=== PATIENT | female | born 1990 | race Caucasian/White ===

== ENCOUNTER → 2017-11-02 16:52 | Outpatient (CLI) | payer OTHER, SELFPAY ==
[2017-11-02 17:46] LABS: Absolute Lymphocyte Count 1.88 X10^3/ul (0.83-4.51); Absolute Neutrophil Count 5.2 X10^3/uL (2.0-7.7); Basophil# 0.02 X10^3/uL; Basophil% 0.3 % (0-1); Eosinophil# 0.06 X10^3/uL; Eosinophils% 0.8 % (0-5); Hemoglobin 12.4 g/dl (12.0-15.0); Lymphocyte # 1.88 X10^3/ul (4.0); Mean Corp Hgb Conc 34.4 g/gl (32-36); Mean Corpuscular Hgb 30.5 pg (27.0-32.0); Mean Corpuscular Volume 88.7 fL (81-99); Mean Platelet Vol. 9.1 fl (6.2-12.0); Neutrophil # 5.15 X10^3/uL (2.7-7.7); Neutrophil % 65.8 % (47-70); Platelet Count 310 K/mm3 (150-450); RBC Distribution Width CV 12.1 % (11.6-14.6); RBC Distribution Width SD 38.2 fl (35.1-43.9); Red Blood Count 4.06 M/mm3 (4.2-5.4); White Blood Count 7.8 K/mm3 (4.4-11.0)
[2017-11-02 17:50] LABS: POSITIVE COUNT NO; POSITIVE DIFFERENTIAL NO; POSITIVE MORPHOLOGY NO
[2017-11-02 19:55] LABS: HIV - WCH Non-Reactive (Nonreactive); Rubella IgG 66.4 IU/mL
[2017-11-02 21:23] LABS: Chlamydia Trachomatis by PCR Negative (Negative); Neisserai gonorrhoeae by PCR Negative (Negative); Probe Check PASS; Sample Adequacy Control PASS; Specimen Processing Control PASS
[2017-11-05 11:09] LABS: HEPATITIS B SURFACE AG Negative (Negative)
[2017-11-07 13:47] LABS: HPV Reflexed? NOT INDICATED
[2017-11-09 05:01] LABS: Rapid Plasmin Reagin (RPR) NONREACTIVE (NONREACTIVE)
== END ==
PROVIDERS: Visit Provider Obstetrics & Gynecology
DX: Z12.4 Encounter for screening for malignant neoplasm of cervix (principal); Z34.90 Encounter for supervision of normal pregnancy, unspecified, unspecified trimester
CPT/HCPCS: 36415; 85025; 86592; 86703; 86762; 86850; 86900; 87086; 87088; 87340; 87491; 87591; 88175; G0145

== ENCOUNTER → 2018-01-10 18:41 | Outpatient (CLI) | payer OTHER, SELFPAY ==
--- NOTE | 2018-01-10 18:32 | US_ITS ---
STUDY: SECOND AND THIRD TRIMESTER OBSTETRICAL ULTRASOUND REASON FOR EXAM: Female, 27 years old. Evaluate anatomy LMP: 08/30/2017 TECHNIQUE: Transabdominal PRIOR ULTRASOUND: None. FINDINGS: There is a single intrauterine fetus. The fetus is in a breech presentation. There is demonstrated cardiac activity with a heart rate of 130 bpm. The NOE was not calculated. The placenta is anterior in location and is not low lying. There are Grade 0 placental changes. The cervix measures 3.1 cm in length. The adnexal regions are not visualized. BIOMETRY: BPD: 4.13 cm: 18 weeks, 4 days HC: 16.07 cm: 19 weeks, 0 days AC: 13.40 cm: 19 weeks, 0 days FL: 2.8 cm: 18 weeks, 6 days CI: 75% FL/BPD: 70% FL/AC: 21% HC/AC: 1.20 age by current US: 18 weeks, 6 days. MICHAEL by current US: 06/07/2018. Estimated weight: 261 grams, +/- 38 grams, 37 %. Age by LMP: 19 weeks, 0 days. MICHAEL by LMP: 06/06/2018. ANATOMY: Gender: Female Cranium: Normal lateral ventricles. Normal choroid plexus. Normal cerebellum. Normal cisterna magna. Normal face, nose and lips. Chest: Normal 4-chamber heart. Abdomen/Pelvis: Normal diaphragm. Normal stomach. Normal abdominal wall. Normal cord insertion. Normal 3 vessel cord. Normal kidneys. Normal bladder. Spine: Normal cervical spine. Normal thoracic spine. Normal lumbar spine. Normal sacrum. Extremities: Normal bilateral upper extremities. Normal bilateral lower extremities. US/OB Anatomy Scan IMPRESSION: Single viable intrauterine of approximately 18 weeks 6 days gestational age by current ultrasonographic measurement. The fetus is in breech presentation. The heart rate is 130 bpm. There is an anterior not low lying placenta. No anatomical abnormalities were identified. Other findings as detailed above. Electronically Signed: Jarred Bertrand MD at 20:42 EDT , Service support ,
== END ==
LOC: US 18:42
PROVIDERS: Visit Provider Obstetrics & Gynecology
DX: Z34.90 Encounter for supervision of normal pregnancy, unspecified, unspecified trimester (principal)
CPT/HCPCS: 76805

== ENCOUNTER → 2018-03-15 10:05 | Outpatient (CLI) | payer OTHER, SELFPAY ==
[2018-03-15 11:19] LABS: Absolute Lymphocyte Count 1.55 X10^3/ul (0.83-4.51); Absolute Neutrophil Count 5.7 X10^3/uL (2.0-7.7); Basophil# 0.03 X10^3/uL; Basophil% 0.4 % (0-1); Eosinophil# 0.06 X10^3/uL; Eosinophils% 0.8 % (0-5); Hematocrit 34.9 % (37-47); Hemoglobin 11.7 g/dl (12.0-15.0); Lymphocyte # 1.55 X10^3/ul (4.0); Lymphocyte % 19.5 % (19-41); Mean Corp Hgb Conc 33.5 g/gl (32-36); Mean Corpuscular Hgb 30.6 pg (27.0-32.0); Mean Corpuscular Volume 91.4 fL (81-99); Mean Platelet Vol. 9.5 fl (6.2-12.0); Monocyte% 7.5 % (0-10); Neutrophil # 5.67 X10^3/uL (2.7-7.7); Neutrophil % 71.2 % (47-70); Platelet Count 271 K/mm3 (150-450); RBC Distribution Width CV 12.5 % (11.6-14.6); RBC Distribution Width SD 40.4 fl (35.1-43.9); Red Blood Count 3.82 M/mm3 (4.2-5.4)
[2018-03-15 11:20] LABS: POSITIVE COUNT NO; POSITIVE DIFFERENTIAL NO; POSITIVE MORPHOLOGY NO
[2018-03-15 11:33] LABS: Glucose Challenge Gest 1H 50g 106 mg/dL (70-140)
== END ==
PROVIDERS: Visit Provider Obstetrics & Gynecology
DX: Z34.90 Encounter for supervision of normal pregnancy, unspecified, unspecified trimester (principal)
CPT/HCPCS: 36415; 82950; 85025

== ENCOUNTER → 2018-04-29 10:51 | Outpatient (CLI) | payer OTHER, SELFPAY ==
--- NOTE | 2018-04-29 10:58 | US_ITS ---
STUDY: SECOND AND THIRD TRIMESTER OBSTETRICAL ULTRASOUND - LIMITED REASON FOR EXAM: Female, 27 years old. Size smaller than dates. Assess growth. LMP: 08/30/2017. MICHAEL (LMP) 06/06/2018. GA (LMP) 34 week 4 day. PRIOR ULTRASOUND: 01/10/2018 TECHNIQUE: Transabdominal ultrasound evaluation was performed. FINDINGS: Single live intrauterine gestation, cephalic presentation, cardiac rate 144 bpm. Placenta is anterior, grade 1, not low-lying. The cervical length is 3.7 cm, closed. The maternal adnexa are not evaluated. The amniotic fluid index is normal, 11.7 cm, deepest vertical pocket 3.6 cm. BIOMETRY: Measurements in centimeters. BPD: 8.7: 35 weeks, 1 days HC: 31.31: 35 weeks, 1 days AC: 30.5: 34 weeks, 3 days FL: 6.7: 34 weeks, 5 days Age by LMP: 34 weeks, 4 days. MICHAEL by LMP: 06/06/2018. age by prior US: 34 weeks, 3 days. MICHAEL by prior US: 06/07/2018. age by current US: 34 weeks, 6 days. MICHAEL by current US: 06/04/2018. Estimated weight: 2473 grams, +/- 361 grams, 46 percentile. Anatomic images were obtained only for assessment of position, dates and viability. In that limited survey no gross anatomic abnormality was observed. US/OB Limited With Biometrics IMPRESSION: Single live gestation. No acute or maternal abnormality is evident. Measurements are within 2 days of expected dates based on last menses. 46th percentile. Electronically Signed: Hasmukh Brian, at 17:35 EDT Tel , Service support ,
== END ==
PROVIDERS: Visit Provider Obstetrics & Gynecology
DX: O26.843 Uterine size-date discrepancy, third trimester (principal); Z3A.00 Weeks of gestation of pregnancy not specified
CPT/HCPCS: 76816

== ENCOUNTER → 2018-05-10 21:19 | Outpatient (CLI) | payer OTHER, SELFPAY ==
[2018-05-10 23:18] LABS: Group B Strep DNA By PCR Negative (Negative); Internal Control PASS; Probe Check PASS; Specimen Processing Control PASS
== END ==
PROVIDERS: Referring Provider Obstetrics & Gynecology; Visit Provider Obstetrics & Gynecology
DX: O26.843 Uterine size-date discrepancy, third trimester (principal); Z3A.00 Weeks of gestation of pregnancy not specified
CPT/HCPCS: 87081; 87653

== ENCOUNTER 2018-05-29 09:52 | Outpatient (CLI) | payer OTHER, SELFPAY ==
--- NOTE | 2018-05-29 09:55 | US_ITS ---
STUDY: SECOND AND THIRD TRIMESTER OBSTETRICAL ULTRASOUND - LIMITED REASON FOR EXAM: Female, 27 years old. Routine survey. LMP: August 30, 2017. PRIOR ULTRASOUND: Comparison is made with prior ultrasound dated April 29, 2018. TECHNIQUE: Transabdominal TECHNICAL QUALITY: Adequate. FINDINGS: There is a single intrauterine fetus. The fetus is in a cephalic presentation. There is demonstrated cardiac activity with a heart rate of 150 bpm. There is a normal amniotic fluid volume. The largest amniotic fluid pocket measures 3.3 cm. The amniotic fluid index (NOE) is 9.64 cm. The placenta is anterior in location and is not low lying. There are Grade 1 placental changes. The cervix is not visualized due to the head positioning. BIOMETRY: BPD: 9.23 cm: 37 weeks, 4 days HC: 33.06 cm: 37 weeks, 5 days AC: 32.25 cm: 36 weeks, 2 days FL: 7.19 cm: 36 weeks, 6 days Age by LMP: 38 weeks, 6 days. MICHAEL by LMP: June 06, 2018. age by prior US: 39 weeks, 1 days. MICHAEL by prior US: June 04, 2018. age by current US: 37 weeks, 1 days. MICHAEL by current US: June 18, 2018. Estimated weight: 3008 grams, +/- 439 grams, 18 percentile. Gender: Female US/OB Limited With Biometrics IMPRESSION: Single live intrauterine gestation with a mean gestational age of 39 weeks and 1 day. Measurements obtained today following the normal expected range. Electronically Signed: Kendall Brooks MD at 11:11 EST Tel [phone], Service support ,
[2018-05-29 11:13] LABS: Hematocrit 36.3 % (37-47); Hemoglobin 11.9 g/dl (12.0-15.0); Mean Corp Hgb Conc 32.8 g/gl (32-36); Mean Corpuscular Hgb 29.6 pg (27.0-32.0); Mean Corpuscular Volume 90.3 fL (81-99); Mean Platelet Vol. 9.9 fl (6.2-12.0); Platelet Count 260 K/mm3 (150-450); RBC Distribution Width CV 13.3 % (11.6-14.6); RBC Distribution Width SD 43.5 fl (35.1-43.9); Red Blood Count 4.02 M/mm3 (4.2-5.4)
[2018-05-29 11:14] LABS: Scan Indicated on CBC? Y/N NO
[2018-05-29 11:15] VITALS: BMI 31.8
[2018-05-29 11:26] LABS: Prothrombin Time (Protime)PT. 12.7 SECONDS (11.7-14.9)
[2018-05-29 11:28] LABS: AST(SGOT) 17 U/L (15-37); Alanine Aminotransfer ALT/SGPT 22 U/L (13-56); EST Glomerular Filtration Rate 128 mL/min (>60); Est Glom Filt Rate - Afr Amer 155 mL/min (>60); Estimated Creatinine Clearance 113.36 ml/min; Protein, Urine (Random) 8.9 mg/dL (<11.9); Protein:Creat Ratio 67 mg/g CRE (0-200); Uric Acid 4.3 mg/dL (2.6-6.0)
[2018-05-29 11:59] VITALS: BP 109/73; PULSE 77; RESP 18; TEMP 36.1
--- NOTE | 2018-06-03 21:27 | OB.TRI.NOTE ---
- Problem List (1) Uterine size-date discrepancy in third trimester Status: Acute Comment: growth us History of Present Illness Date of Service: 05/29/18 Was patient seen by the physician?: No Reason For Visit: UTERINE SIZE DISCREPANCY R/O PREECLAMPSIA History of Present Illness: initial elevated bp in the office, repeats WNL. ultrasound for size date discrepancy ordered. Allergies No Known Allergies Allergy (Verified 05/29/18 11:16) Laboratory Studies: Laboratory Tests 05/29/18 05/29/18 05/29/18 Range/Units 10:55 10:55 10:55 WBC (4.4-11.0) K/mm3 RBC (4.2-5.4) M/mm3 Hgb (12.0-15.0) g/dl Hct (37-47) % MCV (81-99) fL MCH (27.0-32.0) pg MCHC (32-36) g/gl RDW (11.6-14.6) % RDW Differential (35.1-43.9) fl Plt Count (150-450) K/mm3 MPV (6.2-12.0) fl PT (11.7-14.9) SECONDS INR APTT (24.1-36.2) Seconds Creatinine 0.60 (0.55-1.02) mg/dL Estim Creat Clear Calc 113.36 ml/min Est GFR (MDRD) Af Amer 155 (>60) mL/min Est GFR (MDRD) Non-Af 128 (>60) mL/min Uric Acid 4.3 (2.6-6.0) mg/dL AST 17 (15-37) U/L ALT 22 (13-56) U/L U Random Total Protein 8.9 (<11.9) mg/dL Urine Creatinine 132.00 (NO RANGE EST.) mg/dL Protein/Creatinin Ratio 67 (0-200) mg/g CRE Blood Type O POSITIVE Antibody Screen NEGATIVE 05/29/18 05/29/18 Range/Units 10:55 10:55 WBC 8.0 (4.4-11.0) K/mm3 RBC 4.02 L (4.2-5.4) M/mm3 Hgb 11.9 L (12.0-15.0) g/dl Hct 36.3 L (37-47) % MCV 90.3 (81-99) fL MCH 29.6 (27.0-32.0) pg MCHC 32.8 (32-36) g/gl RDW 13.3 (11.6-14.6) % RDW Differential 43.5 (35.1-43.9) fl Plt Count 260 (150-450) K/mm3 MPV 9.9 (6.2-12.0) fl PT 12.7 (11.7-14.9) SECONDS INR 1.0 APTT 30.0 (24.1-36.2) Seconds Creatinine (0.55-1.02) mg/dL Estim Creat Clear Calc ml/min Est GFR (MDRD) Af Amer (>60) mL/min Est GFR (MDRD) Non-Af (>60) mL/min Uric Acid (2.6-6.0) mg/dL AST (15-37) U/L ALT (13-56) U/L U Random Total Protein (<11.9) mg/dL Urine Creatinine (NO RANGE EST.) mg/dL Protein/Creatinin Ratio (0-200) mg/g CRE Blood Type Antibody Screen Physical Exam Vitals: Vital Signs Temp Pulse Resp BP 97.0 F L 77 18 109/73 05/29/18 11:59 05/29/18 11:59 05/29/18 11:59 05/29/18 11:59 NST - FHR Rate Baby A Baseline: 135 Variability:: Moderate Accelerations:: 15 x 15 Decelerations:: None NST Reactive:: Yes FHR Category:: Category I Uterine Activity:: irregular Impression/Plan uterine size date discrpency- normal bps and reassuring us and reactive nst dc home fu as scheduled
== END 2018-05-29 12:00 | disposition home or self-care (01) ==
LOC: OPUS 09:53 → WPOUT 10:39 → WP 10:43
PROVIDERS: Referring Provider Obstetrics & Gynecology; Visit Provider Obstetrics & Gynecology
DX: O26.843 Uterine size-date discrepancy, third trimester (principal); Z3A.00 Weeks of gestation of pregnancy not specified
CPT/HCPCS: 36415; 59025; 59050; 76816; 82565; 82570; 84156; 84450; 84460; 84550; 85027; 85610; 85730; 86850; 86900; 99218; G0378

== ENCOUNTER → 2018-06-07 10:27 | Outpatient (CLI) | payer OTHER, SELFPAY ==
[2018-06-07 10:03] VITALS: BMI 29.7
--- NOTE | 2018-06-07 10:30 | US_ITS ---
STUDY: SECOND AND THIRD TRIMESTER OBSTETRICAL ULTRASOUND - LIMITED REASON FOR EXAM: Female, 27 years old. Amniotic fluid index assessment. LMP: 08/30/2017. GA (LMP) 40 week 1 day. PRIOR ULTRASOUND: 05/29/2018 and 04/29/2018. TECHNIQUE: Transabdominal ultrasound evaluation was performed. FINDINGS: There is a single live intrauterine gestation in cephalic presentation with cardiac rate 140 bpm. Placenta grade 1, anterior, not low-lying. The cervix is not visualized. The amniotic fluid index is 8.4 cm with deepest vertical pocket 2.9 cm. US/OB Limited (No Biometrics) IMPRESSION: Normal amniotic fluid index. Single live anterior gestation with appropriate cardiac activity. Cephalic presentation with no evidence of placenta previa. Electronically Signed: Hasmukh Brian, at 11:16 EST Tel , Service support ,
== END ==
PROVIDERS: Referring Provider Nurse Practitioner Women's Health; Visit Provider Nurse Practitioner Women's Health
DX: Z34.00 Encounter for supervision of normal first pregnancy, unspecified trimester (principal)
CPT/HCPCS: 76815

== ENCOUNTER 2018-06-10 18:50 | Inpatient (IN) | payer OTHER, SELFPAY ==
[2018-06-07 10:03] VITALS: BMI 29.7
[2018-06-10] MEDS: Lactated Ringers 1,000 ML 50 ML IV (19:20)
[2018-06-10 19:38] VITALS: BMI 32.0
[2018-06-10 19:56] LABS: Hematocrit 35.9 % (37-47); Hemoglobin 11.9 g/dl (12.0-15.0); Mean Corp Hgb Conc 33.1 g/gl (32-36); Mean Corpuscular Volume 90.4 fL (81-99); Mean Platelet Vol. 10.4 fl (6.2-12.0); Platelet Count 269 K/mm3 (150-450); RBC Distribution Width CV 13.2 % (11.6-14.6); Red Blood Count 3.97 M/mm3 (4.2-5.4)
[2018-06-10 19:58] LABS: Scan Indicated on CBC? Y/N NO
[2018-06-10] MEDS: 0.9% Saline Lock 10 ML Syringe IV (20:00)
[2018-06-10] MEDS: miSOPROStol 25 MCG TABLET VAGINAL (20:28)
--- NOTE | 2018-06-10 21:00 | HP.PCM_ITS ---
- Problem List (1) Post-dates Status: Acute (2) Status: Acute Qualifiers: Comment: declined genetic and NTD screening. anatomy scan normal (3) Supervision of normal first Status: Acute Qualifiers: Comment: PRR 06/06/18 girl (name surprise) Zeus (4) Uterine size-date discrepancy in third trimester Status: Acute Comment: growth us History Date of Admission: 06/10/18 Final MICHAEL: 06/06/18 Gestational age: 40 Weeks and 4 Days History of this : This is a 27 year-old, at 40 weeks gestational age presents for IOL secondary to postdates. she has had an uncomplicated . Allergies No Known Allergies Allergy (Verified 06/10/18 19:36) Home Medications: Home Medications vitamin,calcium,qhgrbgba-qaog-bpplj acid tablet 1 tab PO QDAY 11/02/17 Smoking Status: Never smoker Alcohol: None Number of Fetus(es): 1 Heart Tracins moderate variability reactive no decels cat I tracing TOCO Analysis: irregular History Past Pregnancies: Past Pregnancies Delivery Date Name GA/Weeks Outcome Route Weight Gender Labor Length Anesthesia Delivery Location Provider FOB Labs: Mom's Labs & Results 06/10/18 06/10/18 19:20 19:20 WBC 10.0 RBC 3.97 L Hgb 11.9 L Hct 35.9 L MCV 90.4 MCH 30.0 MCHC 33.1 RDW 13.2 RDW Differential 43.0 Plt Count 269 MPV 10.4 Blood Type O POSITIVE Antibody Screen NEGATIVE Course Did the patient receive Yes care? Labs Blood Type: O RH: POSITIVE RPR/VDRL/Syphilis Nonreactive Rubella status Immune HbSAg Negative Date Done: 11/02/17 Chlamydia Negative Gonorrhea Negative HIV/AIDS Non-Reactive Group B Strep: Negative Current Obstetrical History Gestational Diabetes No Incompetent Cervix No Infertility No IUGR No Macrosomia No Hypertension/Pre-eclampsia No Placenta Previa/Abruption No PTL/PROM No Uterine anomaly No Oligohydramnios No Polyhydramnios No Multiple gestation No Past Medical History Asthma No Diabetes No Hypertension No Heart disease No Mitral valve prolapse No Neurologic/Seizure disorder/ No Migraines Kidney disease No Liver disease No Varicosities No Clotting disorders/Hx of DVT No Thyroid Dysfunction No Other medical diseases No Psychiatric disorders No Major trauma No Abnormal PAP smear No Sleep apnea No Mammogram in the last 2 years No Social History Marital Status: Alleged father Zeus Hx Smoking No Smoking Status Never smoker Expected Infant Delivery Method: Spontaneous Vaginal Describe any other labor & delivery plans:: Pregancy History. 1 Elective abortions. Hx Para Spontaneous abortions. Hx # Term Pregnancies Ectopic pregnancies. Hx # Pregnancies Multiple births. # of living children. HPI. 40 weeks: Details: KARINE ARIZMENDI is a 27 year old who presents for routine OB visit. OB Visit. MICHAEL Calculator. Estimated Delivery Date 06/06/18. Based on LMP (certain) 08/30/17. Current WG 40w 1d. Number 1. Expected Delivery Route/Plan. . Specific Issue/Plans. flu vaccine: no. minichart given: yes. tdap vaccine: rhogam: na. LARC form signed: declines. labor support person: Zeus. pain management: epidural. cut cord/dad catch: cord. : yes. PP control planned: []. special requests: [] Review of Systems Constitutional: Denies: Fever, Malaise Eyes: Denies: Blurred vision, Vision Change HEENT: Denies: Head Aches, Visual Changes Cardiovascular: Denies: Chest Pain, Palpitations Respiratory: Denies: Cough, Shortness of Breath, Wheezing Gastrointestinal: Denies: Abdominal Pain, Diarrhea, Nausea, Vomiting Genitourinary: Denies: Dysuria, Hematuria Musculoskeletal: Denies: Joint Pain, Muscle pain Skin: Denies: Lesions, Rash Neurological: Denies: Blurred vision, Focal weakness, Headaches Psychiatric: Denies: Anxiety, Depression Endocrine: Denies: Heat/ Cold Intolerance Hematologic/ Lymphatic: Denies: Easy Bruising, Easy Bleeding Physical Exam General: Alert, Cooperative, No apparent distress HEENT: Atraumatic, Normocephalic. Negative for: Thyromegaly, Lymphadenopathy Cardiovascular: Regular rate Lungs: Normal air movement Abdomen: Soft, Non Tender, Gravid Neurological: Deep Tendon Reflexes 2+/4 and Symmetrical, Neuro grossly intact. Negative for: Clonus ZANJERO: Normal external genitalia. Negative for: Vulvar lesions Estimated gestational size: Appropriate for gestational size Presentation: Cephalic Cervix Dilation (cm): 1.5 Station: -3 Effacement (%): 30 Assessment/Plan All Active Problems (Last Reviewed 06/07/18 @ 10:04 by Colette Vines) Post-dates (Acute) Uterine size-date discrepancy in third trimester (Acute) Flu vaccine need (Acute) (Acute) Supervision of normal first (Acute) Uterine size-date discrepancy in third trimester (Resolved) This is a 27 year-old, at 40 weeks gestational age presents for IOL secondary to postdates Patient presents IOL, plan expectant management for , cytotec to start and then pitocin/AROM PRN if needed. Pain management: plans epidural. GBS negative Management of any complications: none I have reviewed the [facility] and made any clinically relevant updates.
[2018-06-11] MEDS: miSOPROStol 25 MCG TABLET VAGINAL ×2 (00:31→04:35)
[2018-06-11] MEDS: fentaNYL-bupivacaine (epidural) 100 ML BAG EPIDURAL (09:15)
[2018-06-11] MEDS: Oxytocin 30 units/NS 500 ml 30 UNITS/500 ML IV.SOLN IV (09:30)
[2018-06-11] MEDS: Lactated Ringers 1,000 ML 50 ML IV (09:45)
[2018-06-11] MEDS: Oxytocin 30 units/NS 500 ml 30 UNITS/500 ML IV.SOLN 334 UNITS IV (13:17)
[2018-06-11] MEDS: Oxytocin 30 units/NS 500 ml 30 UNITS/500 ML IV.SOLN 167 UNITS IV (13:47)
[2018-06-11 19:45] VITALS: BP 132/82; PULSE 71; RESP 16; TEMP 36.5; O2SAT 98
[2018-06-11] MEDS: Naproxen 250 MG Tablet PO (20:11)
[2018-06-11] MEDS: Acetaminophen 500 MG Tablet 1000 MG PO (23:05)
[2018-06-12] VITALS: BP 124/83; PULSE 60; RESP 16; TEMP 36.6; O2SAT 97
[2018-06-12 05:05] VITALS: BP 120/75; PULSE 61; RESP 14; TEMP 36.5; O2SAT 98
--- NOTE | 2018-06-12 08:14 | PCM.PN.OB ---
Patient Problems: Active and Suspected Problems (Last Reviewed 06/07/18 @ 10:04 by Colette Vines) Post-dates (Acute) Subjective: Doing well. No SOB, CP - Physical Exam General: Alert, Oriented x3 Abdomen: Soft, Non Tender, - - FF below U Vital Signs Temp Pulse Resp BP Pulse Ox 97.7 F L 61 14 120/75 98 06/12/18 05:05 06/12/18 05:05 06/12/18 05:05 06/12/18 05:05 06/12/18 05:05 Oxygen Delivery Method Room Air Weight: 175 lb 2 oz Body Mass Index (BMI) 32.0 Intake and Output for Last 24 Hours 06/10/18 06/11/18 06/12/18 23:59 23:59 23:59 Intake Total 3350 / 3350 Output Total 1999 Balance 1350 / 1350 Medical Necessity - Tobacco Use Smoking Status: Never smoker Assessment/Plan All Active Problems (Last Reviewed 06/07/18 @ 10:04 by Colette Vines) Post-dates (Acute) Uterine size-date discrepancy in third trimester (Acute) Flu vaccine need (Acute) (Acute) Supervision of normal first (Acute) Uterine size-date discrepancy in third trimester (Resolved) PPD#1 Routine care. . Pain Controlled
[2018-06-12 08:30] VITALS: BP 134/75; PULSE 73; RESP 16; TEMP 35.8; O2SAT 98
[2018-06-12] MEDS: Acetaminophen 500 MG Tablet 1000 MG PO ×2 (10:22→20:21)
[2018-06-12 12:15] VITALS: BP 125/74; PULSE 72; TEMP 35.9; O2SAT 98
[2018-06-12 15:55] VITALS: BP 122/79; PULSE 54; RESP 18; TEMP 36.7
[2018-06-12 20:00] VITALS: BP 131/78; PULSE 80; RESP 16; TEMP 36.2
[2018-06-13 02:00] VITALS: BP 118/71; PULSE 62; RESP 14; TEMP 36.4
[2018-06-13 08:00] VITALS: BP 130/77; PULSE 58; RESP 16; TEMP 36.4; O2SAT 98
--- NOTE | 2018-06-13 09:02 | PCM.PN.OB ---
Patient Problems: Active and Suspected Problems (Last Reviewed 06/07/18 @ 10:04 by Colette Vines) Post-dates (Acute) Subjective: No CP, SOB. Doing well - Physical Exam General: Alert, Oriented x3 Abdomen: Soft, Non Tender, - - FF below U Vital Signs Temp Pulse Resp BP Pulse Ox 97.6 F L 62 14 118/71 98 06/13/18 02:00 06/13/18 02:00 06/13/18 02:00 06/13/18 02:00 06/12/18 12:15 Oxygen Delivery Method Room Air Weight: 175 lb 2 oz Body Mass Index (BMI) 32.0 Intake and Output for Last 24 Hours 06/11/18 06/12/18 06/13/18 23:59 23:59 23:59 Intake Total 3350 / 3350 Output Total 1999 Balance 1350 / 1350 Medical Necessity - Tobacco Use Smoking Status: Never smoker Assessment/Plan All Active Problems (Last Reviewed 06/07/18 @ 10:04 by Colette Vines) Post-dates (Acute) Uterine size-date discrepancy in third trimester (Acute) Flu vaccine need (Acute) (Acute) Supervision of normal first (Acute) Uterine size-date discrepancy in third trimester (Resolved) PPD #2: Routine care. Home today
--- NOTE | 2018-06-13 09:03 | PCM.DCVAG ---
Additional Instructions: If you experience any of the following, contact your healthcare provider. Bleeding that soaks a pad every hour for 2 hours Fever 100.4 or higher Unrelieved incision or abdominal pain Swelling, redness, discharge or bleeding from your incision or episiotomy site Your incision begins to separate Problems urinating (including inability to urinate or burning while urinating). Visual changes Severe headache Flu-like symptoms Pain or redness in one of both of your breasts Pain, warmth, tenderness or swelling in your legs, especially the calf area Frequent nausea and vomiting Symptoms of depression or anxiety If you experience any of the following, call 911 or go to the nearest Emergency Room. Chest pain Problems breathing Seizure activity Partial or complete paralysis of a body part, slurred speech, weakness or drooping of the face, or a sudden inability to walk or hold your balance Allergies/Adverse Reactions: Allergies No Known Allergies Allergy (Verified 06/10/18 19:36) Medications to take at Discharge vitamin,calcium,kmpimpso-xpzo-orbwy acid tablet 1 tab PO QDAY 11/02/17 Primary Care Physician: Care Physician,No Primary [Primary Care Provider] - Test Results: Test results from this visit will be discussed in further detail at your follow-up appointment, if applicable.
--- NOTE | 2018-06-13 09:04 | DCINST_ITS ---
Additional Instructions: If you experience any of the following, contact your healthcare provider. * Bleeding that soaks a pad every hour for 2 hours * Fever 100.4 or higher * Unrelieved incision or abdominal pain * Swelling, redness, discharge or bleeding from your incision or episiotomy site * Your incision begins to separate * Problems urinating (including inability to urinate or burning while urinating). * Visual changes * Severe headache * Flu-like symptoms * Pain or redness in one of both of your breasts * Pain, warmth, tenderness or swelling in your legs, especially the calf area * Frequent nausea and vomiting * Symptoms of depression or anxiety If you experience any of the following, call 911 or go to the nearest Emergency Room. * Chest pain * Problems breathing * Seizure activity * Partial or complete paralysis of a body part, slurred speech, weakness or drooping of the face, or a sudden inability to walk or hold your balance Allergies/Adverse Reactions: Allergies No Known Allergies Allergy (Verified 06/10/18 19:36) Medications to take at Discharge vitamin,calcium,mdmbjtpr-wadn-khtwd acid tablet 1 tab PO QDAY 11/02/17 Primary Care Physician: Care Physician,No Primary [Primary Care Provider] - Test Results: Test results from this visit will be discussed in further detail at your follow- up appointment, if applicable.
[2018-06-13 13:29] VITALS: BP 130/77; PULSE 58; RESP 16; TEMP 36.4; O2SAT 98
--- NOTE | 2018-06-20 21:00 | PCM.OB.VAG ---
- Problem List (1) Post-dates Status: Acute (2) Status: Acute Qualifiers: Comment: declined genetic and NTD screening. anatomy scan normal (3) Supervision of normal first Status: Acute Qualifiers: Comment: PRR 06/06/18 girl (name surprise) Zeus (4) Uterine size-date discrepancy in third trimester Status: Acute Comment: growth us Vaginal Delivery Maternal Presentation: Medically Indicated Induction iold postdates Medical Reason for Induction: Post term Amniotic Membrane Rupture Type: Artificial Amniotic Fluid Description: Clear Final MICHAEL: 06/06/18 Gestational age: 41 Weeks and 0 Days Date of Procedure: 06/11/18 Pre-Operative Diagnosis: iol postdates Post-Operative Diagnosis: same Surgery/ Procedure Performed: Spontaneous Vaginal Delivery Type of Anesthesia: Epidural Description of Procedure: Patient began pushing and delivered the head in the verónica presentation. The head was delivered atraumatically. The anterior and posterior shoulders delivered without complication followed by the rest of the infant and the infant was placed on the maternal abdomen. Delayed cord clamping was employed for approximately 60 seconds. Cord was clamped and cut and gentle traction was applied to the cord and the placenta delivered spontaneously immediately following it was noted to be intact with three-vessel cord. The perineum and vagina were inspected. Patient and tolerated delivery well. Presentation: VERÓNICA Placental Delivery Description: Spontaneous Placenta Disposition: [facility] Cord Entanglement: None Episiotomy Description: None Medications given after delivery: IV Pitocin Complications: None
== END 2018-06-13 11:45 | disposition home or self-care (01) | DRG 807 ==
PROVIDERS: Admitting Provider Obstetrics & Gynecology; Referring Provider Obstetrics & Gynecology; Visit Provider Obstetrics & Gynecology
DX: O48.0 Post-term pregnancy (principal); Z37.0 Single live birth; O26.843 Uterine size-date discrepancy, third trimester; Z3A.40 40 weeks gestation of pregnancy
CPT/HCPCS: 59025; 59050; 85027; 86850; 86900; 99218; J7120; A4216; G0378

== ENCOUNTER 2018-06-20 19:00 | Outpatient (CLI) | payer OTHER, SELFPAY | END 2018-06-20 20:00 | disposition home or self-care (01) | LOC: WPOUT 19:02 → WP 19:02 | PROVIDERS: Visit Provider Obstetrics & Gynecology | DX: Z39.1 Encounter for care and examination of lactating mother (principal) | CPT/HCPCS: 96152 ==

== ENCOUNTER → 2019-12-01 16:57 | Outpatient (CLI) | payer OTHER, SELFPAY ==
[2019-12-01 13:30] VITALS: BMI 32.0
[2019-12-05 20:40] LABS: HPV Reflexed? NOT INDICATED
== END ==
PROVIDERS: Visit Provider Obstetrics & Gynecology
DX: Z12.4 Encounter for screening for malignant neoplasm of cervix (principal)
CPT/HCPCS: 88175; G0145

== ENCOUNTER → 2020-08-26 14:48 | Outpatient (CLI) | payer OTHER, SELFPAY ==
[2020-08-26 14:02] VITALS: BMI 29.9
[2020-08-26 15:07] LABS: Absolute Lymphocyte Count 1.62 X10^3/uL (0.83-4.51); Absolute Neutrophil Count 5.1 X10^3/uL (2.0-7.7); Basophil# 0.04 X10^3/uL; Basophil% 0.5 % (0-1); Eosinophil# 0.04 X10^3/uL; Eosinophils% 0.5 % (0-5); Hematocrit 40.1 % (37-47); Hemoglobin 13.8 g/dL (12.0-15.0); Lymphocyte # 1.62 X10^3/ul (4.0); Lymphocyte % 21.9 % (19-41); Mean Corp Hgb Conc 34.4 g/dL (32-36); Mean Corpuscular Hgb 30.6 pg (27.0-32.0); Mean Corpuscular Volume 88.9 fL (81-99); Mean Platelet Vol. 8.9 fl (6.2-12.0); Monocyte# 0.59 X10^3/uL; NRBC Flagged by Analyzer 0 % (0-5); Neutrophil % 68.8 % (47-70); Platelet Count 303 K/mm3 (150-450); RBC Distribution Width CV 11.8 % (11.6-14.6); RBC Distribution Width SD 38.1 fl (35.1-43.9); Red Blood Count 4.51 M/mm3 (4.2-5.4); White Blood Count 7.4 K/mm3 (4.4-11.0)
[2020-08-26 18:16] LABS: Amphetamine Urine VISTA NEGATIVE (<1000 ng/mL); Barbiturate Urine VISTA NEGATIVE (< 200 ng/mL); Benzodiazepine Urine VISTA NEGATIVE (< 200 ng/mL); Cocaine Urine VISTA NEGATIVE (< 300 ng/mL); Ecstacy Urine VISTA NEGATIVE (< 500 ng/mL); Methadone Urine VISTA NEGATIVE (< 300 ng/mL); PCP Urine VISTA NEGATIVE (< 25 ng/mL); THC Urine VISTA NEGATIVE (< 50 ng/mL); Vista UDS pH Range 6
[2020-08-26 19:42] LABS: Chlamydia Trachomatis by PCR Negative (Negative); Neisserai gonorrhoeae by PCR Negative (Negative); Probe Check PASS; Sample Adequacy Control PASS; Specimen Processing Control PASS
[2020-08-27 09:32] LABS: HIV - WCH Non-Reactive (Nonreactive); Hepatitis B Surface Antigen Non-Reactive (Nonreactive); Hepatitis C Antibody Non-Reactive (Nonreactive); Rubella IgG Reactive (Nonreactive)
[2020-08-31 03:07] LABS: Chlamydia By Nucleic Acid AMP Negative (Negative)
[2020-08-31 08:39] LABS: Gonococcus By Nucleic Acid AMP Negative (Negative)
[2020-09-02 01:42] LABS: Rapid Plasmin Reagin (RPR) NONREACTIVE (NONREACTIVE)
== END ==
PROVIDERS: Referring Provider Obstetrics & Gynecology; Visit Provider Obstetrics & Gynecology
DX: Z34.90 Encounter for supervision of normal pregnancy, unspecified, unspecified trimester (principal); Z11.3 Encounter for screening for infections with a predominantly sexual mode of transmission
CPT/HCPCS: 36415; 80307; 85025; 86592; 86703; 86762; 86803; 86850; 86900; 86901; 87086; 87088; 87340; 87491; 87591

== ENCOUNTER → 2021-01-12 15:21 | Outpatient (CLI) | payer OTHER, SELFPAY ==
[2021-01-12 14:57] VITALS: BMI 29.6
[2021-01-12 15:47] LABS: Absolute Lymphocyte Count 1.64 X10^3/uL (0.83-4.51); Absolute Neutrophil Count 6.7 X10^3/uL (2.0-7.7); Basophil# 0.02 X10^3/uL; Basophil% 0.2 % (0-1); Eosinophil# 0.05 X10^3/uL; Eosinophils% 0.5 % (0-5); Hematocrit 34.8 % (37-47); Hemoglobin 11.9 g/dL (12.0-15.0); Lymphocyte # 1.64 X10^3/ul (0.83-4.51); Lymphocyte % 17.9 % (19-41); Mean Corp Hgb Conc 34.2 g/dL (32-36); Mean Corpuscular Hgb 31.2 pg (27.0-32.0); Mean Corpuscular Volume 91.1 fL (81-99); Mean Platelet Vol. 9.1 fl (6.2-12.0); Monocyte# 0.69 X10^3/uL; Monocyte% 7.5 % (0-10); NRBC Flagged by Analyzer 0 % (0-5); Neutrophil # 6.68 X10^3/uL (2.7-7.7); Neutrophil % 73.2 % (47-70); Platelet Count 248 K/mm3 (150-450); RBC Distribution Width CV 12.5 % (11.6-14.6); Red Blood Count 3.82 M/mm3 (4.2-5.4); White Blood Count 9.1 K/mm3 (4.4-11.0)
[2021-01-12 16:02] LABS: Glucose Challenge Gest 1H 50g 92 mg/dL (70-140)
== END ==
PROVIDERS: Nurse Practitioner Women's Health; Referring Provider Obstetrics & Gynecology; Visit Provider Obstetrics & Gynecology
DX: Z13.1 Encounter for screening for diabetes mellitus (principal); Z34.80 Encounter for supervision of other normal pregnancy, unspecified trimester
CPT/HCPCS: 36415; 82950; 85025

== ENCOUNTER → 2021-03-16 16:22 | Outpatient (CLI) | payer OTHER, SELFPAY | PROVIDERS: Visit Provider Obstetrics & Gynecology | DX: Z34.80 Encounter for supervision of other normal pregnancy, unspecified trimester (principal) | CPT/HCPCS: 87077; 87081; 87186 ==

== ENCOUNTER 2021-04-12 04:01 | Inpatient (IN) | payer OTHER, SELFPAY ==
[2021-04-12] VITALS (34 sets, daily range): BP systolic 116–139; BP diastolic 62–86; PULSE 69–118; RESP 16; TEMP 36.1–36.6; O2SAT 93–100; BMI 30.4
[2021-04-12] MEDS: Lactated Ringers 1,000 ML 50 ML IV (04:35)
[2021-04-12] MEDS: Lactated Ringers 500 ML 999 ML IV (04:36)
[2021-04-12 04:48] LABS: Absolute Neutrophil Count 12.8 X10^3/uL (2.0-7.7); Basophil# 0.03 X10^3/uL; Basophil% 0.2 % (0-1); Eosinophil# 0.03 X10^3/uL; Eosinophils% 0.2 % (0-5); Hematocrit 33.6 % (37-47); Hemoglobin 11.2 g/dL (12.0-15.0); Lymphocyte % 11.3 % (19-41); Mean Corp Hgb Conc 33.3 g/dL (32-36); Mean Corpuscular Hgb 29.9 pg (27.0-32.0); Mean Corpuscular Volume 89.6 fL (81-99); Monocyte# 1.13 X10^3/uL; Monocyte% 7.1 % (0-10); NRBC Flagged by Analyzer 0 % (0-5); Neutrophil # 12.83 X10^3/uL (2.7-7.7); Neutrophil % 80.5 % (47-70); Platelet Count 240 K/mm3 (150-450); RBC Distribution Width CV 13.3 % (11.6-14.6); RBC Distribution Width SD 43.5 fl (35.1-43.9); Red Blood Count 3.75 M/mm3 (4.2-5.4); White Blood Count 15.9 K/mm3 (4.4-11.0)
[2021-04-12] MEDS: fentaNYL-bupivacaine (epidural) 100 ML BAG EPIDURAL (05:46)
[2021-04-12] MEDS: Oxytocin 30 units/NS 500 ml 30 UNITS/500 ML IV.SOLN 334 UNITS IV (08:15)
--- NOTE | 2021-04-12 08:45 | HP.PCM.OB_ITS ---
HPI - General General Date of Admission: 04/12/21 HPI Narrative KARINE ARIZMENDI, is a 30 F G2, P1 at 40 weeks gestation who presents in active labor Maternal Data Information MICHAEL Calculator Estimated Delivery Date Method Current WG Current Estimate 04/11/21 Ultrasound #1 40w 1d Other Estimates 04/02/21 LMP (Certain) 41w 3d PFSH PFSH Medical History no medical history Home Medications multivitamin no.47-iron fum 27 mg-folate no.1 1 mg-dha 300 mg capsule 1 cap PO DAILY 08/17/20 [History Last Taken 04/11/21 08:00] ondansetron HCl [Zofran] 4 mg PO Q4H 04/12/21 [History Last Taken Unknown] Allergy/AdvReac Type Severity Reaction Status Date / Time No Known Allergies Allergy Verified 04/12/21 04:41 Family History Grandmother Diabetes Surgical History no surgical history Social History household members: family housing: house number of children: 1 current occupational status: employed Smoking Status: Never smoker second hand exposure: No alcohol intake: never substance use type: does not use caffeine: No what type of physical activity do you participate in: walking seatbelt use: always do you feel safe at home: Yes additional social history: Ze[employer]- [employer] Patient cleans homes History 2 Elective abortions Hx Para 1 Spontaneous abortions Hx # Term Pregnancies Ectopic pregnancies Hx # Pregnancies Multiple births # of living children 1 Past Pregnancies Del. Date Name GA/Weeks Outcome Route Bth Weight Gen Labor Lgth Anesthesia Del Locatn Provider FOB 06/10/18 Danii 40 live - full term 6lb 8oz Female epidural [facility] Zeus Delivery Date: 06/10/18 no complications Magali Cote Visit Details Expected Delivery Route/Plan Labor Preferences- CB/BF classes: [] labor support person:Zeus labor intervention preferences: open to standard interventions pain management options preferred: epidural cut cord/dad catch: cord : yes PP control planned: mini pill discussed possible routes of delivery and associated risks: [] special requests: [] Plans flu vaccine: decline tdap vaccine: [] rhogam: [] LARC form signed: [] Problem list reviewed and updated with the most current plan of care details and appropriate orders placed. Relevant counseling for the gestational age provided. Continue routine care and follow up unless otherwise noted in visit notes/problem list details OB Flowsheet Initial Weight: 165 lb Date -?-?-?-?-?-?-?-?-?-?-?-?- EGA Weight BP Urine Prot -?-?-?-?-?-?-?-?-?-?-?-?- Glucose FHR FuHt Pres Dilation -?-?-?-?-?-?-?-?-?-?-?-?- Effaced St Visit Note 08/26/20 -?-?-?-?-?-?-?-?-?-?-?-?- 7w 3d 164 lb (-16 oz) 120/84 -?-?-?-?-?-?-?-?-?-?-?-?- 165 -?-?-?-?-?-?-?-?-?-?-?-?- SM- CRL 1.2cm NO T cons with LMP 09/23/20 -?-?-?-?-?-?-?-?-?-?-?-?- 11w 3d 162 lb (-3 lb) 126/68 Negative -?-?-?-?-?-?-?-?-?-?-?-?- Negative 160 -?-?-?-?-?-?-?-?-?-?-?-?- SM- no vb crampi ng less nausea 10/21/20 -?-?--?-?-?-?-?-?-?-?-?-?- 15w 3d 162 lb 2 oz (-2 lb 14 oz) 122/68 Negative -?-?-?-?-?-?-?-?-?-?-?-?- Negative 161 -?-?-?-?-?-?-?-?-?-?-?-?- MH-NO Vb, LOF. M FM US ordered. 11/19/20 -?-?-?-?-?-?-?-?-?-?-?-?- 19w 4d 167 lb (+2 lb) 124/70 Negative -?-?-?-?-?-?-?-?-?--?-?-?- Negative 140 -?-?-?-?-?-?-?-?-?-?-?-?- GP - no LOF, VB, DFM, ctx. Had 2 near syncopal episodes - encouraged increased fluids and small frequent meals. 12/13/20 -?-?-?-?-?-?-?-?-?-?-?-?- 23w 0d 166 lb 2 oz (+1 lb 2 oz) 114/72 Trace -?-?-?-?-?-?-?-?-?-?-?-?- 1000 g/dL 143 -?-?-?-?-?-?-?-?-?-?-?-?- MH- NO VB, LOF. Good FM. Has follow up US with MFM scheduled next week to complete views.Had sweet tea prior to visit today. GCT next visit. 01/12/21 -?-?-?-?-?-?-?-?-?-?-?-?- 27w 2d 169 lb 6 oz (+4 lb 6 oz) 126/80 Negative -?-?-?-?-?-?-?-?-?-?-?-?- Negative 155 27 -?-?-?-?-?-?-?-?-?-?-?-?- GP - no LOF, VB, DFM, ctx. GCT and CBC to be drawn after visit. Considering TDAP. 01/27/21 -?-?-?-?-?-?-?-?-?-?-?-?- 29w 3d 172 lb (+7 lb) 116/80 Negative -?-?-?-?-?-?-?-?-?-?-?-?- Negative 145 29 -?-?-?-?-?-?-?-?-?-?-?-?- Sm- no vb lof go od fm no reuglar ctx 02/14/21 -?-?-?-?-?-?-?-?-?-?-?-?- 32w 0d 170 lb (+5 lb) 102/74 Negative -?-?-?-?-?-?-?-?-?-?-?-?- Negative 130 32 Cephalic -?-?-?-?-?-?-?-?-?-?-?-?- GP - no LOF, VB, DFM, ctx. Denies complaints 02/28/21 -?-?-?-?-?-?-?-?-?-?-?-?- 34w 0d 173 lb 4 oz (+8 lb 4 oz) 128/76 Negative -?-?-?-?-?-?-?-?-?-?-?-?- Negative 130 34 -?-?-?-?-?-?-?-?-?-?-?-?- GP - no LOF, VB, dFM, ctx. Denies complaints. 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 GBS done today. 03/21/21 -?-?-?-?-?-?-?-?-?-?-?-?- 37w 0d 177 lb (+12 lb) 115/80 Negative -?-?-?-?-?-?-?-?-?-?-?-?- Negative 115 36 Cephalic -?-?-?-?-?-?-?-?-?-?-?-?- Sm- no vb lof go od fm no reuglar ctx 03/30/21 -?-?-?-?-?-?-?-?-?-?-?-?- 38w 2d 176 lb 6 oz (+11 lb 6 oz) 120/86 Negative -?-?-?-?-?-?-?-?-?-?-?-?- Negative 120 37 Cephalic -?-?-?-?-?-?-?-?-?-?-?-?- GP - no LOF, VB, dFM, ctx. Denies complaints. 04/04/21 -?-?-?-?-?-?-?-?-?-?-?-?- 39w 0d 176 lb 2 oz (+11 lb 2 oz) 130/86 Negative -?-?-?-?-?-?-?-?-?-?-?-?- Negative 130 39 Cephalic 2 -?-?-?-?-?-?-?-?-?-?-?-?- 50 -2 GP- no LOF , VB, dFM, ctx. Discussed labor precautions. 04/11/21 -?-?-?-?-?-?-?-?-?-?-?-?- 40w 0d 130/76 -?-?-?-?-?-?-?-?-?-?-?-?- 125 38 Cephalic 3 -?-?-?-?-?-?-?-?-?-?-?-?- 70 -1 SM- no vb lof good fm no regular ctx fh lower- get growth scan discussed kick counts plan IOL 41 weeks membranes swept 04/12/21 -?-?-?-?-?-?-?-?-?-?-?-?- 40w 1d 166 lb 12.8 oz (+1 lb 12.8 oz) 124/74 138/86 133/86 139/86 119/76 121/75 117/69 125/71 119/68 116/66 131/62 139/85 135/63 -?-?-?-?-?-?-?-?-?-?-?-?- -?-?-?-?-?-?-?-?-?-?-?-?- NST FHR Rate Baby A Baseline: 140 Variability:: Moderate Accelerations:: 15 x 15 Decelerations:: None NST Reactive:: Yes FHR Category:: Category I Uterine Activity:: Every 2 minutes ROS Eyes Eyes: Reports systems reviewed and no addt'l complaints, except as documented ENT HEENT: Reports systems reviewed and no addt'l complaints, except as documented Cardiovascular Cardiovascular: Reports systems reviewed and no addt'l complaints, except as documented Respiratory/Chest Respiratory/Chest: Reports systems reviewed and no addt'l complaints, except as documented Gastrointestinal Gastrointestinal: Reports systems reviewed and no addt'l complaints, except as documented Genitourinary Genitourinary: Reports systems reviewed and no addt'l complaints, except as documented Musculoskeletal Musculoskeletal: Reports systems reviewed and no addt'l complaints, except as documented Integumentary Integumentary: Reports systems reviewed and no addt'l complaints, except as documented Neurologic Neurologic: Reports systems reviewed and no addt'l complaints, except as documented Psychiatric Psychiatric: Reports systems reviewed and no addt'l complaints, except as documented Endocrine Endocrinology: Reports systems reviewed and no addt'l complaints, except as documented Hematologic/Lymphatic Hematologic/Lymphatic: Reports systems reviewed and no addt'l complaints, except as documented Allergic/Immunologic Allergic/Immunologic: Reports systems reviewed and no addt'l complaints, except as documented Vital Signs Vital Signs Vital Signs: 04/12/21 04:14 04/12/21 04:15 04/12/21 05:32 Temperature 97.8 F Temperature Source Temporal Pulse Rate 82 113 H Blood Pressure 124/74 H 138/86 H BP Systolic 124 138 BP Diastolic 74 86 Pulse Ox 100 04/12/21 05:37 04/12/21 05:42 04/12/21 05:45 Temperature Temperature Source Pulse Rate 108 H 95 109 H Blood Pressure 133/86 H 139/86 H BP Systolic 133 139 BP Diastolic 86 86 Pulse Ox 100 99 93 04/12/21 05:47 04/12/21 05:48 04/12/21 05:52 Temperature Temperature Source Pulse Rate 104 H 93 98 Blood Pressure 119/76 121/75 H BP Systolic 119 121 BP Diastolic 76 75 Pulse Ox 99 98 04/12/21 05:57 04/12/21 06:02 04/12/21 06:07 Temperature Temperature Source Pulse Rate 102 H 99 85 Blood Pressure 117/69 125/71 H 119/68 BP Systolic 117 125 119 BP Diastolic 69 71 68 Pulse Ox 98 97 98 04/12/21 06:12 04/12/21 06:13 04/12/21 06:18 Temperature Temperature Source Pulse Rate 85 84 95 Blood Pressure 116/66 BP Systolic 116 BP Diastolic 66 Pulse Ox 98 99 04/12/21 06:23 04/12/21 06:28 04/12/21 06:33 Temperature Temperature Source Pulse Rate 98 91 87 Blood Pressure BP Systolic BP Diastolic Pulse Ox 98 98 98 04/12/21 06:37 04/12/21 06:38 04/12/21 07:41 Temperature 97.3 F L 97.8 F Temperature Source Temporal Temporal Pulse Rate 88 96 Blood Pressure 131/62 H 139/85 H BP Systolic 131 139 BP Diastolic 62 85 Pulse Ox 04/12/21 08:36 Temperature Temperature Source Pulse Rate 98 Blood Pressure 135/63 H BP Systolic 135 BP Diastolic 63 Pulse Ox Weight Weight: 166 lb 12.8 oz Body Mass Index (BMI) 30.4 Physical Exam Const alert, oriented x3, no apparent distress, average body habitus, healthy appearing and well nourished HEENT normocephalic and moist oral mucous membranes Head and Scalp: atraumatic Eyes PERRL and EOMs intact bilaterally Neck full ROM Resp normal respiratory effort, no retractions and no use of accessory muscles Cardio regular rate and regular rhythm GI soft to palpation, non-tender and non-distended Extremity normal to inspection and full ROM Skin no rashes or lesions noted Neuro no focal motor deficits and no sensory deficits noted Psych mental status grossly normal, affect normal, speech normal and activity/motor behavior normal Labs Labs Labs: Blood Type O POSITIVE Antibody Screen NEGATIVE Hct 33.6 % (37-47) L Hgb 11.2 g/dL (12.0-15.0) L Obstetrics US Rubella IgG Antibody Reactive (Nonreactive) Hep Bs Antigen Non-Reactive (Nonreactive) Neisseria gonorrhoeae DNA (SAMMI) Negative (Negative) HIV 1&2 Antibody Non-Reactive (Nonreactive) C.trachomatis DNA (PCR) Negative (Negative) Glucose 1 Hr 50 gm 92 mg/dL (70-140) Group B Strep DNA Negative (Negative) Rhogam given: No Assessment & Plan (1) Positive GBS test: COMMENT: tx in Labor (2) Supervision of other normal : COMMENT: PRR MICHAEL: 04/11/21 PC: Danii Spouse: Zeus (3) : QUALIFIERS: Weeks of gestation: 39 weeks Qualified Code(s): Z3A.39 - 39 weeks gestation of COMMENT: declines carrier, genetic, and ntd screening.anatomy and FU growth nl (4) Active labor: PLAN: Patient presents IAL, plan expectant management for , pitocin/AROM PRN if needed. Pain management: plans epidural. GBS positive plan IV PCN. Management of any complications: none I have reviewed the [facility] and made any clinically relevant updates.
--- NOTE | 2021-04-12 08:50 | EX.PCM.OBRPT ---
Assessment & Plan (1) Spontaneous vaginal delivery: COMMENT: GP IAL 04/12 Girl ? (2) Active labor: (3) Positive GBS test: COMMENT: tx in Labor (4) Supervision of other normal : COMMENT: PRR MICHAEL: 04/11/21 PC: Danii Spouse: Zeus (5) : QUALIFIERS: Weeks of gestation: 39 weeks Qualified Code(s): Z3A.39 - 39 weeks gestation of COMMENT: declines carrier, genetic, and ntd screening.anatomy and FU growth nl Maternal Data Information MICHAEL Calculator Estimated Delivery Date Method Current WG Current Estimate 04/11/21 Ultrasound #1 40w 1d Other Estimates 04/02/21 LMP (Certain) 41w 3d Vaginal Delivery Maternal Presentation Maternal Presentation: Active Labor Maternal Presentation: 30-year-old G2, P1 at 40 weeks gestation admitted in active labor. Patient made cervical change to complete dilation without augmentation. Operative Information Date of Procedure: 04/12/21 Pre-Operative Diagnosis: Term , active labor Post-Operative Diagnosis: Same Surgery / Procedure Performed: Spontaneous Vaginal Delivery Type of Anesthesia: Local with 1% Lidocaine Estimated Blood Loss: 200 Findings Description of Procedure: Patient began pushing and delivered the head in the CESAR presentation. The head was delivered atraumatically and no nuchal cord was noted. The anterior and posterior shoulders delivered without complication followed by the rest of the infant and the infant was placed on the maternal abdomen. Delayed cord clamping was employed for approximately 60 seconds. Cord was clamped and cut and gentle traction was applied to the cord and the placenta delivered spontaneously immediately following it was noted to be intact with three-vessel cord. The perineum and vagina were inspected and a midline second-degree perineal laceration was noted. The laceration was instilled with 1 1% lidocaine and repaired in the standard fashion using 2-0 Vicryl suture. EBL was 200 cc. Patient and tolerated delivery well. Presentation: Vertex and CESAR Amniotic Membrane Rupture Type: Spontaneous Amniotic Fluid Description: Clear Placental Delivery Description: Spontaneous Placenta Disposition: [facility] Cord Vessel Description: 3 Vessels Cord Entanglement: None A Gender: Female Delayed Cord Clamping: Yes Post Vaginal Delivery Medications Given After Delivery: IV Pitocin Episiotomy Description: None Laceration: Midline, Perineal Extension/lac and 2nd degree Complication Complications: None Procedures Urinary/Genital [id number]: [id number] [facility]inal [facility]
--- NOTE | 2021-04-12 08:52 | PCM.DC ---
Discharge Instructions Diet Discharge Diet: No restrictions Activity Discharge Activity: Return to Normal Activity, May Not Drive (while taking narcotic pain medications.) and May Shower May resume sexual activity in: 4-6 weeks Dressing / Incision Call your doctor if your incision/area has: Continuous Slow Oozing, Sudden Increased Bleeding, Increased Pain/ Swelling, Increased Redness and Foul Smelling Discharge Follow Up Care When: Call to make an appointment with your doctor in 6 weeks. If you had elevated Blood Pressure or 4th degree laceration you will need to be seen in 2 weeks. Test Results: Test results from this visit will be discussed in further detail at your follow-up appointment, if applicable. Discharge Plan Admission Admit Date/Time: 04/12/21 04:01 Attending Provider: Lori Curiel Primary Care Provider: Care Physician,Monique Primary Instructions Patient Instructions: After a Vaginal Discharge Orders/Prescriptions Prescriptions: New ibuprofen 800 mg tablet 800 mg PO Q8H PRN (Reason: pain) Qty: 30 RF: 1 Continued PNV-DHA 27 mg iron-1 mg -300 mg capsule 1 cap PO DAILY RF: 0 ondansetron HCl [Zofran] 4 mg tablet 4 mg PO Q4H RF: 0 Referrals / Follow Up: Care Physician,No Primary [Primary Care Provider] -
[2021-04-12] MEDS: Ibuprofen 600 MG Tablet PO ×2 (09:18→19:31)
[2021-04-12] MEDS: Methylergonovine 0.2 MG/ML Ampul IM (09:22)
[2021-04-12] MEDS: Acetaminophen 500 MG Tablet 1000 MG PO (13:57)
[2021-04-13 00:45] VITALS: BP 112/73; PULSE 83; RESP 16; TEMP 36.6; O2SAT 97
[2021-04-13] MEDS: Ibuprofen 600 MG Tablet PO ×3 (02:10→15:57)
[2021-04-13 04:45] VITALS: BP 103/60; PULSE 61; RESP 16; TEMP 36.2; O2SAT 99
[2021-04-13] MEDS: Acetaminophen 500 MG Tablet 1000 MG PO ×3 (06:00→19:37)
--- NOTE | 2021-04-13 07:52 | PCM.PN.OB ---
Subjective Subjective Patient doing well without complaints. Tolerating PO. Ambulating and voiding without difficulty. Breast feeding well. Denies chest pain, shortness of breath, calf pain/swelling, fevers, chills, lightheadedness. Objective Data Objective Data Vital Signs: Vital Signs Temp Pulse Resp BP Pulse Ox 97.2 F L 61 16 103/60 99 04/13/21 04:45 04/13/21 04:45 04/13/21 04:45 04/13/21 04:45 04/13/21 04:45 Oxygen Delivery Method Room Air Weight: 166 lb 12.8 oz Body Mass Index (BMI) 30.4 Intake & Output: Intake and Output for Last 24 Hours 04/11/21 04/12/21 04/13/21 23:59 23:59 23:59 Intake Total 1749.16 / 1749.16 Output Total 1100 / 1100 Balance 649.16 / 649.16 Lab / Micro Data Result Diagrams: 04/12/21 04:35 Micro: Microbiology 04/12/21 04:35 Nasal Secretion SARS-CoV-2 Antigen (Rapid) - Final Physical Exam Const alert and oriented x3 HEENT normocephalic Eyes PERRL Neck full ROM Resp normal respiratory effort GI soft to palpation GI Narrative: FF below U Assessment & Plan (1) Spontaneous vaginal delivery: COMMENT: GP IAL 04/12 Girl ? (2) Positive GBS test: COMMENT: tx in Labor PLAN: s/p PPD # 1. routine post delivery care 2. breast feeding- support given 3. rh positive 4. rubella immune 5. Home after 8pm due to positive GBS status
[2021-04-13 08:30] VITALS: BP 106/69; PULSE 66; RESP 16; TEMP 36.1
[2021-04-13 13:28] VITALS: BP 117/74; PULSE 69; RESP 16; TEMP 36.6
[2021-04-13 20:28] VITALS: BP 113/82; PULSE 74; RESP 18; TEMP 36.8; O2SAT 98
== END 2021-04-13 21:10 | disposition home or self-care (01) | DRG 806 ==
LOC: WPOUT 04:05 → WP 04:06 → WPOUT 04:23 → WP 04:23
PROVIDERS: Admitting Provider Obstetrics & Gynecology; Visit Provider Obstetrics & Gynecology
DX: O70.1 Second degree perineal laceration during delivery (principal); O98.82 Other maternal infectious and parasitic diseases complicating childbirth; Z37.0 Single live birth; B95.1 Streptococcus, group B, as the cause of diseases classified elsewhere; O99.824 Streptococcus B carrier state complicating childbirth; Z3A.40 40 weeks gestation of pregnancy; Z83.3 Family history of diabetes mellitus
CPT/HCPCS: 59025; 59050; 85025; 86850; 86900; 86901; 87426; 99218; J7120; G0378

== ENCOUNTER → 2023-03-06 | Outpatient (CLI) | payer OTHER, SELFPAY | END | disposition home or self-care (01) | PROVIDERS: Referring Provider Obstetrics & Gynecology; Visit Provider Obstetrics & Gynecology | DX: N91.2 Amenorrhea, unspecified (principal) | CPT/HCPCS: 36415; 84702 ==

== ENCOUNTER → 2023-04-06 | Outpatient (CLI) | payer OTHER, SELFPAY ==
[2023-04-06 17:13] LABS: Absolute Lymphocyte Count 1.47 X10^3/uL (0.83-4.51); Absolute Neutrophil Count 5.7 X10^3/uL (2.0-7.7); Basophil# 0.03 X10^3/uL; Basophil% 0.4 % (0-1); Eosinophil# 0.04 X10^3/uL; Eosinophils% 0.5 % (0-5); Hematocrit 38.2 % (37-47); Hemoglobin 12.8 g/dL (12.0-15.0); Lymphocyte # 1.47 X10^3/ul (0.83-4.51); Lymphocyte % 19.1 % (19-41); Mean Corp Hgb Conc 33.5 g/dL (32-36); Mean Corpuscular Hgb 30.1 pg (27.0-32.0); Mean Corpuscular Volume 89.9 fL (81-99); Mean Platelet Vol. 9.2 fl (6.2-12.0); Monocyte# 0.47 X10^3/uL; Monocyte% 6.1 % (0-10); NRBC Flagged by Analyzer 0 % (0-5); Neutrophil # 5.66 X10^3/uL (2.7-7.7); Neutrophil % 73.6 % (47-70); Platelet Count 295 K/mm3 (150-450); RBC Distribution Width CV 12.1 % (11.6-14.6); RBC Distribution Width SD 39.5 fl (35.1-43.9); Red Blood Count 4.25 M/mm3 (4.2-5.4); White Blood Count 7.7 K/mm3 (4.4-11.0)
[2023-04-06 18:33] LABS: HIV - WCH Non-Reactive (Nonreactive); Hepatitis B Surface Antigen Non-Reactive (Nonreactive); Hepatitis C Antibody Non-Reactive (Nonreactive); Rubella IgG Reactive (Nonreactive); Syphilis Antibodies Non-reactive
[2023-04-09 20:08] LABS: Chlamydia By Nucleic Acid AMP Negative (Negative); Gonococcus By Nucleic Acid AMP Negative (Negative)
[2023-04-11 17:07] LABS: HPV APTIMA, High Risk Negative (Negative)
== END | disposition home or self-care (01) ==
PROVIDERS: Referring Provider Registered Nurse; Visit Provider Registered Nurse
DX: Z34.90 Encounter for supervision of normal pregnancy, unspecified, unspecified trimester (principal)
CPT/HCPCS: 36415; 85025; 86703; 86762; 86780; 86803; 86850; 86900; 86901; 87077; 87086; 87088; 87186; 87340; 87491; 87591; 87624; 88175; G0145

== ENCOUNTER → 2023-05-23 | Outpatient (CLI) | payer OTHER, SELFPAY ==
--- NOTE | 2023-05-23 15:22 | US_ITS ---
STUDY: SECOND AND THIRD TRIMESTER OBSTETRICAL ULTRASOUND REASON FOR EXAM: Female, 32 years old anatomy LMP: January 11, 2023 TECHNIQUE: Transabdominal and Transvaginal TECHNICAL QUALITY: Adequate. PRIOR ULTRASOUND: June 07, 2018 FINDINGS: There is a single intrauterine fetus. The fetus is in a cephalic presentation. There is demonstrated cardiac activity with a heart rate of 147 bpm. There is a normal amniotic fluid volume. The largest amniotic fluid pocket measures 6.6- cm. The amniotic fluid index (NOE) is 6.6 cm. The placenta is anterior in location and is not low lying. There are Grade 0 placental changes. The cervix measures 3.4 cm in length. The bilateral adnexal regions are normal. BIOMETRY: BPD: 4.1 cm: 18 weeks, 2 days HC: 16.4 cm: 19 weeks, 1 days AC: 13.4 cm: 18 weeks, 6 days FL: 2.5 cm: 17 weeks, 4 days CI: 69.5 FL/BPD: 61.7 FL/HC: 15.3 FL/AC: 18.6 HC/AC: 1.2 age by current US: 18 weeks, 4 days. MICHAEL by current US: October 20, 2023. Estimated weight: 233 grams, +/- 35 grams, 18 %. . Age by LMP: 18 weeks, 6 days. MICHAEL by LMP: October 18, 2023. ANATOMY: Cranium: Normal lateral ventricles. Normal choroid plexus. Normal cerebellum. Normal cisterna magna. Normal face, nose and lips. Chest: Normal 4-chamber heart. Abdomen/Pelvis: Normal diaphragm. Normal stomach. Normal abdominal wall. Normal cord insertion. Normal 3 vessel cord. Normal kidneys. Normal bladder. Spine: Normal cervical spine. Normal thoracic spine. Normal lumbar spine. Normal sacrum. Limited views due to position. Extremities: Normal bilateral upper extremities. Normal bilateral lower extremities. IMPRESSION: 18 week 4 day intrauterine Electronically Signed: Jung Jones MD at 21:52 EDT , STUDY: SECOND AND THIRD TRIMESTER OBSTETRICAL ULTRASOUND REASON FOR EXAM: Female, 32 years old anatomy LMP: January 11, 2023 TECHNIQUE: Transabdominal and Transvaginal TECHNICAL QUALITY: Adequate. PRIOR ULTRASOUND: June 07, 2018 FINDINGS: There is a single intrauterine fetus. The fetus is in a cephalic presentation. There is demonstrated cardiac activity with a heart rate of 147 bpm. There is a normal amniotic fluid volume. The largest amniotic fluid pocket measures 6.6- cm. The amniotic fluid index (NOE) is 6.6 cm. The placenta is anterior in location and is not low lying. There are Grade 0 placental changes. The cervix measures 3.4 cm in length. The bilateral adnexal regions are normal. BIOMETRY: BPD: 4.1 cm: 18 weeks, 2 days HC: 16.4 cm: 19 weeks, 1 days AC: 13.4 cm: 18 weeks, 6 days FL: 2.5 cm: 17 weeks, 4 days CI: 69.5 FL/BPD: 61.7 FL/HC: 15.3 FL/AC: 18.6 HC/AC: 1.2 age by current US: 18 weeks, 4 days. MICHAEL by current US: October 20, 2023. Estimated weight: 233 grams, +/- 35 grams, 18 %. . Age by LMP: 18 weeks, 6 days. MICHAEL by LMP: October 18, 2023. ANATOMY: Cranium: Normal lateral ventricles. Normal choroid plexus. Normal cerebellum. Normal cisterna magna. Normal face, nose and lips. Chest: Normal 4-chamber heart. Abdomen/Pelvis: Normal diaphragm. Normal stomach. Normal abdominal wall. Normal cord insertion. Normal 3 vessel cord. Normal kidneys. Normal bladder. Spine: Normal cervical spine. Normal thoracic spine. Normal lumbar spine. Normal sacrum. Limited views due to position. Extremities: Normal bilateral upper extremities. Normal bilateral lower extremities. US/OB Anatomy w/ Transvaginal
== END | disposition home or self-care (01) ==
LOC: US 15:20
PROVIDERS: Referring Provider Obstetrics & Gynecology; Visit Provider Obstetrics & Gynecology
DX: Z34.82 Encounter for supervision of other normal pregnancy, second trimester (principal); Z36.87 Encounter for antenatal screening for uncertain dates
CPT/HCPCS: 76805; 76817

== ENCOUNTER → 2023-08-01 | Outpatient (CLI) | payer OTHER, SELFPAY ==
[2023-08-01 14:25] LABS: Absolute Lymphocyte Count 1.71 X10^3/uL (0.83-4.51); Absolute Neutrophil Count 6.9 X10^3/uL (2.0-7.7); Basophil# 0.03 X10^3/uL; Basophil% 0.3 % (0-1); Eosinophil# 0.05 X10^3/uL; Eosinophils% 0.5 % (0-5); Hematocrit 35.6 % (37-47); Hemoglobin 11.9 g/dL (12.0-15.0); Lymphocyte # 1.71 X10^3/ul (0.83-4.51); Lymphocyte % 18.2 % (19-41); Mean Corp Hgb Conc 33.4 g/dL (32-36); Mean Corpuscular Hgb 30.3 pg (27.0-32.0); Mean Corpuscular Volume 90.6 fL (81-99); Mean Platelet Vol. 8.9 fl (6.2-12.0); Monocyte# 0.67 X10^3/uL; Monocyte% 7.1 % (0-10); NRBC Flagged by Analyzer 0 % (0-5); Neutrophil # 6.88 X10^3/uL (2.7-7.7); Neutrophil % 73.4 % (47-70); Platelet Count 283 K/mm3 (150-450); RBC Distribution Width CV 12.4 % (11.6-14.6); Red Blood Count 3.93 M/mm3 (4.2-5.4); White Blood Count 9.4 K/mm3 (4.4-11.0)
[2023-08-01 15:51] LABS: Glucose Challenge Gest 1H 50g 95 mg/dL (70-140)
[2023-08-01 16:23] LABS: HIV - WCH Non-Reactive (Nonreactive); Syphilis Antibodies Non-reactive
== END | disposition home or self-care (01) ==
LOC: PAVLAB 14:05
PROVIDERS: Referring Provider Registered Nurse; Visit Provider Registered Nurse
DX: Z34.90 Encounter for supervision of normal pregnancy, unspecified, unspecified trimester (principal)
CPT/HCPCS: 36415; 82950; 85025; 86703; 86780

== ENCOUNTER 2023-10-14 08:38 | Inpatient (IN) | payer OTHER, SELFPAY ==
[2023-10-14] VITALS (25 sets, daily range): BP systolic 118–152; BP diastolic 60–100; PULSE 45–197; RESP 16–20; TEMP 36.3–37.2; O2SAT 91–99; BMI 32.0
[2023-10-14] MEDS: LACTATED RINGERS 500 ML 999 ML IV (08:50)
[2023-10-14 08:59] LABS: Absolute Lymphocyte Count 2.35 X10^3/uL (0.83-4.51); Absolute Neutrophil Count 6.8 X10^3/uL (2.0-7.7); Basophil# 0.04 X10^3/uL; Basophil% 0.4 % (0-1); Eosinophil# 0.04 X10^3/uL; Eosinophils% 0.4 % (0-5); Hematocrit 36.3 % (37-47); Hemoglobin 11.8 g/dL (12.0-15.0); Lymphocyte # 2.35 X10^3/ul (0.83-4.51); Lymphocyte % 23.6 % (19-41); Mean Corp Hgb Conc 32.5 g/dL (32-36); Mean Corpuscular Hgb 28.2 pg (27.0-32.0); Mean Corpuscular Volume 86.6 fL (81-99); Mean Platelet Vol. 9.9 fl (6.2-12.0); Monocyte# 0.64 X10^3/uL; Monocyte% 6.4 % (0-10); NRBC Flagged by Analyzer 0 % (0-5); Neutrophil # 6.82 X10^3/uL (2.7-7.7); Neutrophil % 68.4 % (47-70); Platelet Count 344 K/mm3 (150-450); RBC Distribution Width CV 13.8 % (11.6-14.6); RBC Distribution Width SD 41.8 fl (35.1-43.9); Red Blood Count 4.19 M/mm3 (4.2-5.4)
--- NOTE | 2023-10-14 09:01 | HP.PCM.OB_ITS ---
HPI - General General Date of Admission: 10/14/23 Date of Service: 10/14/23 HPI Narrative KARINE ARIZMENDI, is a 33 F 39.3 weeks who presents to unit for possible SROM at 0600 for clear fluid. Grossly ruptured on exam. Maternal Data Information MICHAEL Calculator Estimated Delivery Date Method Current WG Current Estimate 10/18/23 LMP (Certain) 39w 3d Final MICHAEL: 10/18/23 Final MICHAEL Source: US >20 weeks Gestational age: 39.3 weeks PFSH PFSH Home Medications multivitamin no.47-iron fum 27 mg-folate no.1 1 mg-dha 300 mg capsule (PNV-DHA) 1 cap PO DAILY Check with primary doctor 08/17/20 [History Last Taken 04/11/21 08:00] ondansetron 4 mg disintegrating tablet 4 mg PO Q4H PRN nausea and vomiting #60 tabs 06/26/23 [Rx Last Taken Unknown] albuterol sulfate 90 mcg/actuation aerosol inhaler 2 inh inhalation Q4H PRN shortness of breath or wheezing #8.5 grams 09/12/23 [Rx Last Taken Unknown] metoclopramide HCl 5 mg tablet (Reglan) 5 mg PO Q4-6H #30 tabs 09/26/23 [Rx Last Taken Unknown] Allergy/AdvReac Type Severity Reaction Status Date / Time No Known Allergies Allergy Verified 10/03/23 15:47 Family History Grandmother Diabetes Father Acute Crohn's disease Social History household members: family housing: house number of children: 2 current occupational status: employed current occupation: [employer] current occupational exposures/hazards: No pets and animals: No history of recent travel: No sexually active: Yes Smoking Status: Never smoker second hand exposure: No alcohol intake: never substance use type: does not use caffeine: No what type of physical activity do you participate in: walking diane/buddhism: Anabaptist seatbelt use: always do you feel safe at home: Yes additional social history: [employer] Patient cleans homes History 3 Elective abortions Hx Para 2 Spontaneous abortions Hx # Term Pregnancies Ectopic pregnancies Hx # Pregnancies Multiple births # of living children 2 Past Pregnancies Del. Date Name GA/Weeks Outcome Route Bth Weight Infant Gen Labor Lgth Anesthesia Del Locatn Provider ARIAN 06/10/18 Danii 40 live - full term 6lb 8oz Female epidural [facility] SM Zeus 04/13/21 Lauren 40 live - full term 7lb 8oz epi dural [facility] Moisés Delivery Date: 06/10/18 Last Updated by: Magali Cote no complications Delivery Date: 04/13/21 Last Updated by: Rosario Clifford CNM admitted in active labor and had uncomplicated delivery failed epidural Visit Details Expected Delivery Route/Plan Labor Preferences- CB/BF classes: no labor support person: Zeus labor intervention preferences: [] pain management options preferred: epidural cut cord/dad catch: cord : yes PP control planned: [] discussed possible routes of delivery and associated risks: [] special requests: [] Plans Covid status: [] Flu vaccine: no Tdap vaccine: declines Rhogam: NA LARC form signed: yes Problem list reviewed and updated with the most current plan of care details and appropriate orders placed. Relevant counseling for the gestational age provided. Continue routine care and follow up unless otherwise noted in visit notes/problem list details OB Flowsheet Initial Weight: 164 lb Date -?-?-?-?-?-?-?-?-?-?-?-?- EGA Weight BP Urine Prot -?-?-?-?-?-?-?-?-?-?-?-?- Glucose FHR FuHt Pres Dilation -?-?-?-?-?-?-?-?-?-?-?-?- Effaced St Visit Note 04/06/23 -?-?-?-?--?-?-?-?-?-?-?-?- 12w 1d 164 lb (+0 oz) 117/74 -?-?-?-?-?-?-?-?-?-?-?-?- 163 -?-?-?-?-?-?-?-?-?-?-?-?- LC- LMP con with CRL. discuss and declines nipt. 05/02/23 -?-?-?-?-?-?-?-?-?-?-?-?- 15w 6d 167 lb 2 oz (+3 lb 2 oz) 118/82 Negative -?-?-?-?-?-?-?-?-?-?-?-?- Negative 149 -?-?-?-?-?-?-?-?-?-?-?-?- MH-No VB. Doing well. Nausea improving. 06/04/23 -?-?-?-?-?-?-?-?-?-?-?-?- 20w 4d 170 lb 6 oz (+6 lb 6 oz) 116/74 Negative -?-?-?-?-?-?-?-?-?-?-?-?- Negative 151 -?-?-?-?-?-?-?-?-?-?-?-?- MH-No Vb, LOF. G ood FM. Nausea continues. Denies concerns 07/04/23 -?-?-?-?-?-?-?-?-?-?-?-?- 24w 6d 172 lb 8 oz (+8 lb 8 oz) 109/71 Negative -?-?-?-?-?-?-?-?-?-?-?-?- Negative 142 -?-?-?-?-?-?-?-?-?-?-?-?- LC- no vb/ctx/lo f. good fm. no concerns. 08/01/23 -?-?-?-?-?-?-?-?-?-?-?-?- 28w 6d 175 lb 4 oz (+11 lb 4 oz) 117/73 Negative -?-?-?-?-?-?-?-?-?-?-?-?- Negative 149 -?-?-?-?-?-?-?-?-?-?-?-?- JV- no lof, vagi nal bleeding, or cramping. + FM 08/15/23 -?-?-?-?-?-?-?-?-?-?-?-?- 30w 6d 176 lb 2 oz (+12 lb 2 oz) 116/73 Negative -?-?-?-?-?-?-?-?-?-?-?-?- Negative 135 -?-?-?-?-?-?-?-?-?-?-?-?- JV- no lof, vagi nal bleeding, or dec fm.. pt and stuck on not finding a name as their only complaint. 09/12/23 -?-?-?-?-?-?-?-?-?-?-?-?- 34w 6d 179 lb (+15 lb) 113/78 Negative -?-?-?-?-?-?-?-?-?-?-?-?- Negative 140 35 -?-?-?-?-?-?-?-?-?-?-?--?- JV- pt complains of coughing and whole family is sick. daughter has walking pneumonia. her lungs are clear, no fever. recommend covid test today and if pos start baby asa. rx for albuterol given as this has helped in the past. 09/26/23 -?-?-?-?-?-?-?-?-?-?-?-?- 36w 6d 177 lb 4 oz (+13 lb 4 oz) 123/79 Negative -?-?-?-?-?-?-?-?-?-?-?-?- Negative 145 35 -?-?-?-?-?-?-?-?-?-?-?-?- JV- gbs pos. no lof, vaginal bleeding, or dec fm. JV- gbs pos. no lof, vaginal bleeding, or dec fm. will try reglan for nausea. 10/03/23 -?-?-?-?-?-?-?-?-?-?-?-?- 37w 6d 178 lb (+14 lb) 124/82 Negative -?-?-?-?-?-?-?-?-?-?-?-?- Negative 142 37 -?-?-?-?-?-?-?-?-?-?-?-?- MH-No VB, LOF. G ood FM. Declines internal exam. No CTX 10/12/23 -?-?-?-?-?-?-?-?-?-?-?-?- 39w 1d 178 lb (+14 lb) 131/72 -?-?-?-?-?-?-?-?-?-?-?-?- 125 37 -?-?-?-?-?-?-?-?-?-?-?-?- KW- no vb.lof.ct x. good fm. declines exam today. NST FHR Rate Baby A Baseline: 135 Variability:: Moderate Accelerations:: 15 x 15 Decelerations:: None NST Reactive:: Yes FHR Category:: Category I Uterine Activity:: 3-4 minutes ROS Constitutional Constitutional: Denies change in weight, fatigue, fever(s), headache(s), poor appetite or weakness Eyes Eyes: Denies blurry vision, change in vision, floaters, seeing flashes or spots in vision ENT HEENT: Denies dizziness, headache(s), loss taste/smell or sore throat Cardiovascular Cardiovascular: Denies chest pain, dizziness, dyspnea, irregular heart rhythm, lightheadedness, palpitations or rapid heart rate Respiratory/Chest Respiratory/Chest: Denies change in mental status, chest tightness, cough, dyspnea or breast pain Gastrointestinal Gastrointestinal: Denies anorexia, chewing difficulty, constipation, diarrhea or weight changes Genitourinary Genitourinary: Denies difficulty urinating, dysuria, flank pain, genital pain, urinary frequency or urinary urgency Musculoskeletal Musculoskeletal: Denies back pain, difficulty walking, extremity pain, joint pain, muscle cramps or muscle weakness Integumentary Integumentary: Denies lesions or unusual bruising Neurologic Neurologic: Denies abnormal movements, abnormal speech, dizziness, numbness, seizure-like activity, syncope or weakness Psychiatric Psychiatric: Denies behavioral changes, change in appetite, confusion, depression, homicidal ideation, suicidal ideation or suicidal thoughts Endocrine Endocrinology: Denies excessive sweating, polydipsia or polyuria Hematologic/Lymphatic Hematologic/Lymphatic: Denies anemia Allergic/Immunologic Allergic/Immunologic: Denies itchy eyes, lip swelling, throat swelling, tongue swelling or wheezing Vital Signs Vital Signs Vital Signs: 10/14/23 08:39 10/14/23 08:39 10/14/23 08:40 Temperature Temperature Source Pulse Rate 74 Respiratory Rate Blood Pressure 141/71 H BP Systolic 141 BP Diastolic 71 Pulse Ox 99 10/14/23 08:40 10/14/23 08:40 10/14/23 08:40 Temperature Temperature Source Temporal Pulse Rate 82 Respiratory Rate 20 H Blood Pressure BP Systolic BP Diastolic Pulse Ox 10/14/23 08:40 Temperature 97.7 F L Temperature Source Pulse Rate Respiratory Rate Blood Pressure BP Systolic BP Diastolic Pulse Ox Weight Weight: 175 lb 0.752 oz Body Mass Index (BMI) 32.0 Physical Exam Const alert, oriented x3 and no apparent distress General Appearance: cooperative Orientation / Consciousness: awake HEENT normocephalic Neck full ROM Lymph Lymphatic: no lymphadenopathy noted Chest inspection of chest normal Resp normal respiratory effort and normal air movement Effort and Inspection: able to speak in complete sentences and symmetric chest movement GI soft to palpation and non-tender Inspection: gravid Palpation: soft; Negative for tender external exam normal Manual OB Exam: dilated 5, effaced 80 and station -1 Back/Spine normal to inspection Extremity normal to inspection and full ROM Skin no rashes or lesions noted Psych mental status grossly normal Appearance: grossly normal Speech: normal speech Labs Labs Labs: Blood Type O POSITIVE Antibody Screen NEGATIVE Hct 36.3 % (37-47) L Hgb 11.8 g/dL (12.0-15.0) L Obstetrics Ultrasound Syphilis Total Ab Non-reactive Rubella IgG Antibody Reactive (Nonreactive) Hep Bs Antigen Non-Reactive (Nonreactive) Hepatitis C Antibody Non-Reactive (Nonreactive) Chlamydia DNA (SAMMI) Negative (Negative) N.gonorrhoeae DNA (SAMMI) Negative (Negative) HIV 1&2 Antibody Non-Reactive (Nonreactive) Glucose 1 Hr 50 gm 95 mg/dL (70-140) Group B Strep DNA Negative (Negative) Rhogam given: No Assessment & Plan (1) Active labor at term: PLAN: Patient presents IAL, plan expectant management for , pitocin/AROM PRN if needed. Pain management: plans epidural. GBS positive plan IV PCN. Management of any complications: none I have reviewed the [facility] and made any clinically relevant updates. Charges/Coding Multi Select Codes Urinary/Genital Urinary/Genital CPT Codes: No Charge
[2023-10-14] MEDS: Penicillin G Pot 5,000,000 UNITS in 0.9% Normal Saline (100mL MB+) 100 ML 150 UNITS IV (09:13)
[2023-10-14] MEDS: Lactated Ringers 1,000 ML 200 ML IV (09:21)
[2023-10-14 09:53] LABS: Syphilis Antibodies Non-reactive
[2023-10-14] MEDS: Lidocaine 1% (20 ml mdv) 20 ML Vial INFILT (10:25)
[2023-10-14] MEDS: Oxytocin 15 Units/NS 250ml 15 UNITS/250 ML IV.SOLN 334 UNITS IV (10:25)
--- NOTE | 2023-10-14 10:49 | EX.PCM.OBRPT ---
Assessment & Plan (1) Vaginal delivery: COMMENT: KW Girl (2) Positive GBS test: COMMENT: treat in labor. GBS positive in urine culture (3) : QUALIFIERS: Weeks of gestation: 39 weeks Qualified Code(s): Z3A.39 - 39 weeks gestation of COMMENT: discussed and declines nipt, nl anatomy (4) Supervision of normal : QUALIFIERS: Normal : other normal Trimester: third trimester Qualified Code(s): Z34.83 - Encounter for supervision of other normal , third trimester COMMENT: [id number] MICHAEL 10/18/23. PC: fritz masters. its a girl! :lucille Maternal Data Information MICHAEL Calculator Estimated Delivery Date Method Current WG Current Estimate 10/18/23 LMP (Certain) 39w 3d Final MICHAEL: 10/18/23 Final MICHAEL Source: US >20 weeks Gestational age: 39.3 weeks Vaginal Delivery Maternal Presentation Maternal Presentation: Active Labor Maternal Presentation: Progressed well to 10cm dilated and made steady progress with effective maternal pushing. Delivered the head in CESAR presentation. The head was delivered atraumatically and no loose nuchal cord was identified. The anterior and posterior shoulders delivered without complication followed by the rest of the infant and the was placed on the maternal abdomen. Delayed cord clamping was employed for approximately 3 minutes. Cord was clamped and cut and gentle traction was applied to the cord and the placenta delivered spontaneously. Immediately following, it was noted to be intact with a 3 vessel cord. The perineum and vagina were inspected and noted to have a first degree laceration which was repaired with 3-0 Vicryl in the usual fashion. EBL was 100cc. Patient and tolerated delivery well. Apgars 8/9. Dr Brumfield notified of vaginal delivery and orders reviewed. Physician agrees with current plan of care. Operative Information Date of Procedure: 10/14/23 Pre-Operative Diagnosis: See AP comments Post-Operative Diagnosis: Same Surgery / Procedure Performed: Spontaneous Vaginal Delivery call or contact centre team leader #1: Kate Slade Type of Anesthesia: None Estimated Blood Loss: 100 Time of Delivery: 10:23 Findings Presentation: Vertex Amniotic Fluid Description: Clear Placental Delivery Description: Spontaneous Placenta Disposition: [facility] Cord Vessel Description: 3 Vessels Cord Entanglement: None A Gender: Female (1 minute): 8 (5 minute): 9 Delayed Cord Clamping: Yes Post Vaginal Delivery Medications Given After Delivery: IV Pitocin Episiotomy Description: None Laceration: 1st degree Complication Complications: None Multi Select Codes Urinary/Genital Urinary/Genital CPT Codes: 36380 Vaginal Delivery [facility]
--- NOTE | 2023-10-14 10:53 | DCINST_ITS ---
Discharge Instructions Diet Discharge Diet: No restrictions Activity Discharge Activity: Return to Normal Activity May resume sexual activity in: 6-8 weeks Dressing / Incision Call your doctor if you observe: Fever of 101 or Higher, Coldness, Increased Pain, Numbness or Tingling, Change in Color, Inability to urinate, Inability to have a bowel movement, Using more than 1 pad per hour, Shortness of breath, Dizziness, Fainting spells, Swelling in the ankles, Chest pain, Increased palpitations (irregular heartbeat), Calf discomfort and Uncontrolled pain Follow Up Care Please Follow Up With: Kate Slade CNM When: Please call the office to schedule your follow up appointment in 6 weeks. If you had high blood pressure please call to schedule an appointment in 2 weeks. Test Results: Test results from this visit will be discussed in further detail at your follow- up appointment, if applicable. Discharge Plan Admission Admit Date/Time: 10/14/23 08:38 Attending Provider: Kate Slade Primary Care Provider: Care Physician,No Primary Discharge Orders/Prescriptions Prescriptions: No Action PNV-DHA 27 mg iron-1 mg -300 mg capsule 1 cap PO DAILY albuterol sulfate 90 mcg/actuation HFA aerosol inhaler 2 inh inhalation Q4H PRN (Reason: shortness of breath or wheezing) Qty: 8.5 1RF metoclopramide HCl [Reglan] 5 mg tablet 5 mg PO Q4-6H Qty: 30 0RF ondansetron 4 mg tablet,disintegrating 4 mg PO Q4H PRN (Reason: nausea and vomiting) Qty: 60 2RF Referrals / Follow Up: Care Physician,No Primary [Primary Care Provider] -
[2023-10-14] MEDS: Oxytocin 15 Units/NS 250ml 15 UNITS/250 ML IV.SOLN 83 UNITS IV (11:10)
[2023-10-14] MEDS: Naproxen 500 MG Tablet PO ×2 (11:33→19:50)
[2023-10-14] MEDS: Acetaminophen 500 MG Tablet 1000 MG PO ×2 (15:21→23:17)
[2023-10-14] MEDS: oxyCODONE 5 MG Tablet PO (15:21)
[2023-10-15] VITALS (9 sets, daily range): BP systolic 112–139; BP diastolic 74–82; PULSE 49–61; RESP 16–18; TEMP 36.1–36.6; O2SAT 97–98
[2023-10-15] MEDS: Naproxen 500 MG Tablet PO ×2 (03:52→13:50)
[2023-10-15] MEDS: Acetaminophen 500 MG Tablet 1000 MG PO ×3 (05:17→18:51)
--- NOTE | 2023-10-15 10:47 | PCM.PN.OB ---
Subjective Subjective Patient doing well without complaints. Tolerating PO. Ambulating and voiding without difficulty. Feeding well. Denies chest pain, shortness of breath, calf pain/swelling, fevers, chills, lightheadedness. Objective Data Objective Data Vital Signs: Vital Signs Temp Pulse Resp BP Pulse Ox O2 Del Method 97.2 F L 56 L 16 120/80 97 Room Air 10/15/23 09:20 10/15/23 09:20 10/15/23 09:20 10/15/23 09:20 10/15/23 03:50 10/15/23 03:50 Oxygen Delivery Method Room Air Weight: 175 lb 0.752 oz Body Mass Index (BMI) 32.0 Intake & Output: Intake and Output for Last 24 Hours 10/13/23 10/14/23 10/15/23 23:59 23:59 23:59 Intake Total 1334.83 / 1334.83 Output Total 300 / 300 Balance 1034.83 / 1034.83 Lab / Micro Data 10/14/23 08:50 Physical Exam Const alert and oriented x3 Chest inspection of chest normal Resp normal respiratory effort and normal air movement Cardio regular rate and regular rhythm GI normal to inspection, nondistended, normoactive bowel sounds Uterus Palpation: uterus fundus firm Extremity normal to inspection, full ROM and normal capillary refill Skin no rashes or lesions noted Psych mental status grossly normal Assessment & Plan (1) Vaginal delivery: COMMENT: KW Girl (2) Positive GBS test: COMMENT: treat in labor. GBS positive in urine culture. PLAN: delivered prior to adequately treated, plans 36 hour obs. feeding well. PLAN: Plan s/p PPD # 1 1. routine post delivery care 2. breast feeding- support given 3. rh positive 4. rubella immune 5. plans d/c home tonight at 36 hours once infant is cleared for untreated GBS
[2023-10-15] MEDS: oxyCODONE 5 MG Tablet PO (11:04)
== END 2023-10-15 21:20 | disposition home or self-care (01) | DRG 807 ==
LOC: WPOUT 08:39 → WP 08:39
PROVIDERS: Admitting Provider Advanced Practice Midwife; Referring Provider Advanced Practice Midwife; Visit Provider Advanced Practice Midwife
DX: O70.0 First degree perineal laceration during delivery (principal); Z37.0 Single live birth; B95.1 Streptococcus, group B, as the cause of diseases classified elsewhere; O99.824 Streptococcus B carrier state complicating childbirth; Z3A.39 39 weeks gestation of pregnancy
CPT/HCPCS: 59025; 59050; 85025; 86780; 86850; 86900; 86901; 99221; J7120; G0378

== ENCOUNTER 2023-10-16 17:09 | Outpatient (CLI) | payer OTHER, SELFPAY ==
[2023-10-16 17:57] VITALS: BP 124/71; PULSE 56; RESP 15; TEMP 36.9; O2SAT 98
[2023-10-16 18:00] VITALS: BP 135/74
[2023-10-16 18:06] VITALS: BP 121/81; PULSE 48; RESP 16; TEMP 36.6; O2SAT 99; BMI 29.6
[2023-10-16 18:06] LABS: Hematocrit 34.8 % (37-47); Hemoglobin 11.1 g/dL (12.0-15.0); Mean Corp Hgb Conc 31.9 g/dL (32-36); Mean Corpuscular Hgb 28.2 pg (27.0-32.0); Mean Corpuscular Volume 88.3 fL (81-99); Mean Platelet Vol. 9.3 fl (6.2-12.0); Platelet Count 323 K/mm3 (150-450); RBC Distribution Width CV 14.2 % (11.6-14.6); RBC Distribution Width SD 45.1 fl (35.1-43.9); Red Blood Count 3.94 M/mm3 (4.2-5.4); White Blood Count 9.1 K/mm3 (4.4-11.0)
--- NOTE | 2023-10-16 18:08 | NURSING ---
pt c/o headache, feeling dizzy and nauseas at times not currently; reflexes +2, no clonus, no epigastric pain,; pt does say that she feels like her ear are plugged; pts apical 52-56;
[2023-10-16 18:24] LABS: ALB/GLOB Ratio 0.8 RATIO (0.9-2.4); AST(SGOT) 21 U/L (15-37); Alanine Aminotransfer ALT/SGPT 21 U/L (13-56); Albumin, Serum 2.9 g/dL (3.2-5.0); Alkaline Phosphatase 145 U/L (45-117); Anion Gap 6 (5-15); BUN 9 mg/dL (7-18); BUN/Creat Ratio 12.2 RATIO (10-20); Calcium,Total 9.2 mg/dL (8.5-10.1); Chloride 107 mmol/L (98-107); Creatinine, Serum 0.74 mg/dL (0.55-1.02); EST Glomerular Filtration Rate 98 mL/min (>60); Est Glom Filt Rate - Afr Amer 119 mL/min (>60); Estimated Creatinine Clearance 103.38 ml/min; Globulin 3.8 g/dL (2.2-4.2); Glucose 121 mg/dL (74-106); Protein, Total 6.7 g/dL (6.4-8.2); Sodium Level 139 mmol/L (136-145)
[2023-10-16] MEDS: Lactated Ringers 1,000 ML 999 ML IV (18:30)
--- NOTE | 2023-10-16 18:32 | EKGRS_ITS ---
Test Reason : Blood Pressure : / mmHG Vent. Rate : 052 BPM Atrial Rate : 052 BPM P-R Int : 128 ms QRS Dur : 076 ms QT Int : 430 ms P-R-T Axes : 064 052 037 degrees QTc Int : 399 ms Sinus bradycardia with sinus arrhythmia Otherwise normal ECG When compared with ECG of 11-FEB-2009 11:46, Nonspecific T wave abnormality, improved in Inferior leads Nonspecific T wave abnormality no longer evident in Lateral leads Confirmed by ANTOINETTE GRIMALDO, KATLIN ([id number]), health editor LORRAINE SINGLETARY ([id number]) on 10/17/2023 1:25:17 PM Referred By: Susana Brumfield Confirmed By:KATLIN CURRY MD
--- NOTE | 2023-10-16 19:45 | NURSING ---
Dr. Brumfield on unit and reviewed patient labs, ekg, blood pressure, heart rate, and is aware that patient still complains of headache that is worse with standing and gets better when lying down. Plan is for anesthesia to evaluate patient. Christen BRAUN made aware by this RN of patient complaints and assessment.
[2023-10-16 19:47] LABS: Troponin-I HS 4 pg/mL (3.0-54.0)
--- NOTE | 2023-10-16 19:53 | OB.TRI.PN ---
Progress Notes Date of Service: 10/16/23 Progress Note: seen for positional headache, had initial elevate dbps, normal labs and repea tbps WNL. n oneuro signs on exam. anesthesia consulted, patient declined blood patch. headche improved with oxy. will dc home with conservative management and pain management. return if desired blood patch of turner worsens Laboratory Studies: Laboratory Tests 10/16/23 10/16/23 Range/Units 19:15 18:00 WBC 9.1 (4.4-11.0) K/mm3 RBC 3.94 L (4.2-5.4) M/mm3 Hgb 11.1 L (12.0-15.0) g/dL Hct 34.8 L (37-47) % MCV 88.3 (81-99) fL MCH 28.2 (27.0-32.0) pg MCHC 31.9 L (32-36) g/dL RDW Std Deviation 45.1 H (35.1-43.9) fl RDW Coeff of Thor 14.2 (11.6-14.6) % Plt Count 323 (150-450) K/mm3 MPV 9.3 (6.2-12.0) fl Sodium 139 (136-145) mmol/L Potassium 4.0 (3.5-5.1) mmol/L Chloride 107 (98-107) mmol/L Carbon Dioxide 26.0 (21.0-32.0) mmol/L Anion Gap 6 (5-15) BUN 9 (7-18) mg/dL Creatinine 0.74 (0.55-1.02) mg/dL Estim Creat Clear Calc 103.38 ml/min Est GFR (MDRD) Af Amer 119 (>60) mL/min Est GFR (MDRD) Non-Af 98 (>60) mL/min BUN/Creatinine Ratio 12.2 (10-20) RATIO Glucose 121 H (74-106) mg/dL Calcium 9.2 (8.5-10.1) mg/dL Total Bilirubin 0.20 (0.20-1.00) mg/dL AST 21 (15-37) U/L ALT 21 (13-56) U/L Alkaline Phosphatase 145 H (45-117) U/L Troponin I High Sens 4 (3.0-54.0) pg/mL Total Protein 6.7 (6.4-8.2) g/dL Albumin 2.9 L (3.2-5.0) g/dL Globulin 3.8 (2.2-4.2) g/dL Albumin/Globulin Ratio 0.8 L (0.9-2.4) RATIO Charges/Coding Procedures Urinary/Genital [id number]: No Charge
--- NOTE | 2023-10-16 20:23 | NURSING ---
Assessment done by this RN to be WNL, post bleeding normal, heart rate regular, and complaints of headache that is worse with standing and better when laying.
--- NOTE | 2023-10-16 21:44 | NURSING ---
Christen Lemon CRNA spoke with patient and recommended blood patch for spinal headache. Patient declining blood patch at this time. Dr. Brumfield notified and made aware that patient does not want blood patch and states that she took oxycodone twice during her admission and that was the only thing that helped her headache. Dr. Brumfield order to give patient oxycodone 10mg x1 before discharge, encourage fluids, rest, continue tylenol, aleve, and caffeine. Patient educated on plan and agreeable to plan. Dr. Brumfield also stated that if patient changed mind and wants blood patch that she can come back to ER and obtain blood patch. Patient aware.
[2023-10-16] MEDS: oxyCODONE 5 MG Tablet 10 MG PO (21:53)
== END 2023-10-16 22:00 | disposition home or self-care (01) ==
LOC: WPOUT 17:28 → WP 17:28
PROVIDERS: Referring Provider Obstetrics & Gynecology; Visit Provider Obstetrics & Gynecology
DX: O99.893 Other specified diseases and conditions complicating puerperium (principal); R51.9 Headache, unspecified; R03.0 Elevated blood-pressure reading, without diagnosis of hypertension
CPT/HCPCS: 96360; 36415; 80053; 84484; 85027; 93005; 99221; J7120; G0378